=== PATIENT | female | born 2000 | race Caucasian/White ===

== ENCOUNTER 2020-06-24 09:47 | Emergency (ER) | payer OTHER, MEDICAID, SELFPAY ==
[2020-06-24 09:48] VITALS: BP 113/70; PULSE 79; RESP 16; TEMP 36.1; O2SAT 98; BMI 18.8
--- NOTE | 2020-06-24 10:02 | ED.DCSUM_ITS ---
History of Present Illness Chief Complaint: Lower Extremity Injury Informant: Patient, Family Onset: Today Narrative: Patient presents the emergency department with right knee pain. Mom states the patient went to pivot and her kneecap was off to the side and her knee was bent. Mom straighten the knee and push the kneecap back into place. Child now wants to cross her legs Past Medical History - Allergies and Home Meds Allergies/Adverse Reactions: Allergies Sulfa (Sulfonamide Antibiotics) Allergy (Verified 06/24/20 09:48) Anaphylaxis Primary Care Physician: King Sanchez MD [STAFF PHYSICIAN] - (call to arrange follow up) Review of Systems General: Denies: Chills, Fever, Sweats Eyes: Denies: Visual changes - bilaterally, Diplopia ENT: Denies: Rhinorrhea, Sore throat Cardiovascular: Denies: Chest pain, Palpitations Respiratory: Denies: Dyspnea, Cough, Dyspnea on exertion Gastrointestinal: Denies: Abdominal pain, Nausea, Vomiting, Diarrhea, Melena, Hematochezia Genitourinary: Denies: Dysuria, Hematuria, Frequency Musculoskeletal: Reports: Extremity Pain. Denies: Back pain Skin: Denies: Rash, Wounds Neurological: Denies: Headache, Weakness, Numbness Physical Exam Vital Signs/Narrative: Vital Signs Temp Pulse Resp BP Pulse Ox 06/24/20 09:48 97 F L 79 16 113/70 98 Inital Vital Signs reviewed: Yes General: Well nourished, Well developed, No Acute Distress Head: Normocephalic, Atraumatic Eyes: Perrl, EOMI ENT: Moist mucous membranes, No rhinorrhea Neck: Supple, Nontender Cardiovascular: Regular rate, Regular rhythm, No murmurs Respiratory: No distress, CTA bilaterally, Chest nontender Abdomen: Soft, Nontender, Nondistended, Normal bowel sounds Back: Nontender, Normal Inspection Extremities: Nontender, No edema Skin: Normal color, No rash Neurological: Alert, Oriented x3, Cranial nerves II-XII grossly intact, Normal Strength, Normal Sensation Psychological: Normal affect, Normal Mood Diagnostic/Tx/Re-eval Clinical Impression(s) from Imaging Studies Knee X-Ray 06/24/20 10:25 IMPRESSION: Normal x-ray examination of the right knee. Electronically Signed: Nirmal Reveles MD at 10:55 EDT , Service support , - Medical Decision Making From the patient's mother's description it sounds like the patient sustained a lateral patellar dislocation. And then reduced it. Her x-rays are negative. E xtensor mechanism is intact. There does not appear to be any joint instability. She will be placed in a knee immobilizer. She sees orthopedics at [facility]. She may follow-up there and I will give her local orthopedics if need be. ED Disposition - Plan for ED Patient: Disposition: Home or Assisted Living Diagnosis: Closed patellar dislocation Instructions: ED Dislocation Patella Referrals: King Sanchez MD [STAFF PHYSICIAN] - (call to arrange follow up) Additional Instructions: I would schedule follow-up with orthopedics. Certainly the orthopedic surgeons at [facility] would be able to assess her. If not Dr. Sanchez is qualified to see her.
--- NOTE | 2020-06-24 10:25 | RAD_ITS ---
STUDY: X-RAY - RIGHT KNEE REASON FOR EXAM: Female, 19 years old. Pain, patellar dislocation per mother TECHNIQUE: 4 view(s) of the knee. COMPARISON: None. FINDINGS: Normal visualized distal femur. Normal visualized proximal tibia and fibula. Normal patella, which is in anatomic alignment. There is no demonstrated fracture. Normal medial femorotibial compartment. Normal lateral femorotibial compartment. Normal patellofemoral articulation. Normal proximal tibiofibular articulation. There is no demonstrated joint effusion. The soft tissue structures are unremarkable. RAD/Knee 4 or More Views IMPRESSION: Normal x-ray examination of the right knee. Electronically Signed: Nirmal Reveles MD at 10:55 EDT , Service support ,
== END 2020-06-24 11:27 | disposition home or self-care (01) ==
PROVIDERS: Emergency Provider Emergency Medicine
DX: S83.014A Lateral dislocation of right patella, initial encounter (principal); X50.1XXA Overexertion from prolonged static or awkward postures, initial encounter; Y93.9 Activity, unspecified; Y92.9 Unspecified place or not applicable
CPT/HCPCS: 73564; 99283

== ENCOUNTER 2020-07-03 16:13 | Emergency (ER) | payer OTHER, MEDICAID, SELFPAY ==
[2020-07-03 16:15] VITALS: BP 94/56; PULSE 63; RESP 18; TEMP 36.9; O2SAT 98; BMI 16.7
--- NOTE | 2020-07-03 17:45 | ED.VIS.FLU ---
History of Present Illness Chief Complaint: Cough Informant: Patient, Parent Narrative: Patient is a 19-year-old female with history of Down syndrome as well as mitral valve prolapse and enlarged heart presenting with 4 to 5 days of cough and fever. Started with a low-grade fever about 5 days ago and feeling sick. Patient has had a persistent cough with associated sore throat. She has had diarrhea decreased appetite. Mother is tried multiple [id number] medications for the cough including Mucinex, Sudafed and cough drops with no relief. Patient denies any ear pain but states she can sometimes get a headache most recently last night. She had no medications today. She was in the ED a week ago for dislocated patella and has been around multiple children and friends of the family over the weekend. Past Medical History - Allergies and Home Meds Allergies/Adverse Reactions: Allergies Sulfa (Sulfonamide Antibiotics) Allergy (Verified 07/03/20 16:15) Anaphylaxis Primary Care Physician: [facility] Doctor,Out of [NON-STAFF] - Smoking Status: Never smoker Review of Systems General: Reports: Fever. Denies: Chills, Sweats ENT: Reports: Rhinorrhea Cardiovascular: Denies: Chest pain, Palpitations Respiratory: Reports: Cough. Denies: Dyspnea, Dyspnea on exertion Gastrointestinal: Reports: Diarrhea. Denies: Abdominal pain, Nausea, Vomiting, Melena, Hematochezia Genitourinary: Denies: Dysuria, Hematuria, Frequency Skin: Denies: Rash Neurological: Reports: Headache. Denies: Weakness, Numbness Physical Exam Vital Signs/Narrative: Vital Signs Temp Pulse Resp BP Pulse Ox 07/03/20 16:15 98.4 F 63 18 94/56 L 98 Inital Vital Signs reviewed: Yes General: Well nourished, Well developed Head: Normocephalic, Atraumatic Eyes: Perrl, EOMI Neck: Supple, Nontender Cardiovascular: Regular rate, Regular rhythm, No murmurs Respiratory: No distress, - - Dry cough on exam. Negative for: Rhonchi, Wheezing, Diminished Abdomen: Soft, Nontender, Nondistended, Normal bowel sounds Back: Nontender, Normal Inspection Extremities: Nontender, No edema Skin: Normal color, No rash Neurological: Alert, Oriented x3, Cranial nerves II-XII grossly intact, Normal Strength, Normal Sensation Psychological: Normal affect Diagnostic/Tx/Re-eval Chest X-Ray - ED: 1 View, Read by ED Physician, Read by Radiologist, - - Bilateral patchy infiltrates, more pronounced on the left Clinical Impression(s) from Imaging Studies Chest X-Ray 07/03/20 17:55 IMPRESSION: Mild bilateral patchy pneumonic infiltrates most prominent in the left lower lobe. Electronically Signed: Zain Fournier MD at 18:14 EDT , Service support , ADDENDUM: 07/03/20 1913 IMPRESSION: Mild bilateral patchy pneumonic infiltrates most prominent in the left lower lobe. N.B. : Blaire Boss MD, confirmed on 07/03/2020 19:06:19 (ET) that the healthcare facility has received the radiology report. Electronically Signed: Zain Fournier MD at 18:14 EDT , Service support , - Medical Decision Making Patient evaluated for 4 to 5 days of cough and low-grade fever. She appears nontoxic in no acute distress. Her vital signs are normal. Patient's lung sounds are clear. Given the current pandemic I will obtain a chest x-ray and swab the patient for coronavirus. Patient's chest x-ray is consistent with a viral pneumonia with bilateral patchy infiltrates. Patient be covered with azithromycin in case this is an atypical pneumonia. COVID swab is pending. As patient is otherwise well-appearing she is a good candidate for outpatient follow-up. Mother is counseled extensively on return precautions. Patient will also be prescribed Robitussin-AC to help with her cough as it is keeping her up at night. Patient is counseled on signs and symptoms requiring return to the emergency room. Patient verbalizes agreement and understand this plan. Patient discharged home in stable and improved condition. ED Disposition - Plan for ED Patient: Disposition: Home or Assisted Living Diagnosis: Suspected COVID-19 virus infection, Bilateral pneumonia Instructions: ED PNEUMONITIS Adult Prescriptions: Guaifenesin/Codeine [Robitussin AC] 5 ml PO Q6H PRN PRN #100 udc PRN Reason: Cough Transmission Status[id number] Azithromycin [Zithromax Z-Slade] 250 mg PO UD #1 box Transmission Status: Received by [id number] Referrals: [facility] Doctor,Out of [NON-STAFF] - Additional Instructions: I suspect Karmen has coronavirus or some type of pneumonia. We will start her on antibiotics and cough medicine. Please call the band splitter to keep them updated and aware of her status. Please notify anyone that she has been around that she potentially could have coronavirus. Will be contacted if she has a positive swab. Return the emergency room with signs of worsening breathing, shortness of breath or dehydration. Otherwise continue to do [id number] therapies including cold and flu medications and cough medicines as needed for symptom control. Encourage lots of fluids.
--- NOTE | 2020-07-03 17:55 | RAD_ITS ---
ACR Level 3 findings have been noted. An addendum which confirms receipt of the report will follow. STUDY: X-RAY CHEST REASON FOR EXAM: Female, 19 years old. cough x 4 days, fever TECHNIQUE: Single AP portable view of the chest. COMPARISON: None. FINDINGS: Mild patchy infiltrates are seen throughout the bilateral perihilar regions, most prominent in the left lower lobe. There is no demonstrated pleural abnormality. Normal size heart. Normal mediastinum and adelina. Normal visualized pulmonary arteries. Normal visualized aortic arch and descending thoracic aorta. Normal visualized thoracic spine. Normal visualized ribs, clavicles, and shoulders. There is no demonstrated abnormality of the visualized soft tissue structures of the upper abdomen. RAD/Chest 1 View (Portable) IMPRESSION: Mild bilateral patchy pneumonic infiltrates most prominent in the left lower lobe. Electronically Signed: Zain Fournier MD at 18:14 EDT , Service support ,
== END 2020-07-03 18:59 | disposition home or self-care (01) ==
PROVIDERS: Emergency Provider Emergency Medicine
DX: U07.1 COVID-19 (principal); J18.9 Pneumonia, unspecified organism; Q90.9 Down syndrome, unspecified; I34.1 Nonrheumatic mitral (valve) prolapse; I51.7 Cardiomegaly
CPT/HCPCS: 71045; 87635; 99282; U0003

== ENCOUNTER → 2020-12-04 14:54 | Outpatient (CLI) | payer OTHER, MEDICAID, SELFPAY ==
[2020-07-19 14:37] VITALS: BMI 16.7
[2020-12-04 17:41] LABS: Absolute Lymphocyte Count 1.21 X10^3/uL (0.83-4.51); Absolute Neutrophil Count 2.5 X10^3/uL (2.0-7.7); Basophil% 2.3 % (0-1); Eosinophil# 0.09 X10^3/uL; Eosinophils% 2.1 % (0-5); Hemoglobin 13.8 g/dL (12.0-15.0); Lymphocyte # 1.21 X10^3/ul (4.0); Lymphocyte % 28.1 % (19-41); Mean Corp Hgb Conc 32.1 g/dL (32-36); Mean Corpuscular Hgb 31.2 pg (27.0-32.0); Mean Corpuscular Volume 97.3 fL (81-99); Mean Platelet Vol. 9.7 fl (6.2-12.0); Monocyte# 0.35 X10^3/uL; Monocyte% 8.1 % (0-10); NRBC Flagged by Analyzer 0 % (0-5); Neutrophil # 2.54 X10^3/uL (2.7-7.7); Neutrophil % 59.2 % (47-70); Platelet Count 277 K/mm3 (150-450); RBC Distribution Width CV 13.1 % (11.6-14.6); RBC Distribution Width SD 47.2 fl (35.1-43.9); Red Blood Count 4.42 M/mm3 (4.2-5.4); White Blood Count 4.3 K/mm3 (4.4-11.0)
[2020-12-04 18:17] LABS: ALB/GLOB Ratio 0.8 RATIO (0.9-2.4); AST(SGOT) 20 U/L (15-37); Alanine Aminotransfer ALT/SGPT 63 U/L (13-56); Albumin, Serum 3.3 g/dL (3.2-5.0); Alkaline Phosphatase 93 U/L (45-117); Anion Gap 6 (5-15); BUN 20 mg/dL (7-18); BUN/Creat Ratio 16.5 RATIO (10-20); Calcium,Total 8.8 mg/dL (8.5-10.1); Chloride 109 mmol/L (98-107); Creatinine, Serum 1.21 mg/dL (0.55-1.02); EST Glomerular Filtration Rate 59 mL/min (>60); Est Glom Filt Rate - Afr Amer 71 mL/min (>60); Globulin 4.4 g/dL (2.2-4.2); Glucose 90 mg/dL (74-106); Potassium 4.1 mmol/L (3.5-5.1); Protein, Total 7.7 g/dL (6.4-8.2); Sodium Level 140 mmol/L (136-145); Thyroid Stim Hormone (TSH) 4.57 uIU/mL (0.358-3.74)
== END ==
PROVIDERS: PCP Family Medicine; Referring Provider Family Medicine; Visit Provider Family Medicine
DX: E03.9 Hypothyroidism, unspecified (principal)
CPT/HCPCS: 36415; 80053; 84443; 85025

== ENCOUNTER → 2021-03-08 16:19 | Outpatient (CLI) | payer OTHER, MEDICAID, SELFPAY ==
[2020-07-19 14:37] VITALS: BMI 16.7
[2021-03-08 18:20] LABS: Free T3 2.2 pg/mL (2.18-3.98); T4 Free Direct 0.95 ng/dL (0.76-1.46); Thyroid Stim Hormone (TSH) 4.42 uIU/mL (0.358-3.74)
== END ==
PROVIDERS: PCP Family Medicine; Referring Provider Family Medicine; Visit Provider Family Medicine
DX: E03.9 Hypothyroidism, unspecified (principal)
CPT/HCPCS: 36415; 84439; 84443; 84481

== ENCOUNTER → 2021-06-15 11:45 | Outpatient (CLI) | payer OTHER, MEDICAID, SELFPAY ==
[2020-07-19 14:37] VITALS: BMI 16.7
[2021-06-15 15:38] LABS: Thyroid Stim Hormone (TSH) 2.88 uIU/mL (0.358-3.74)
== END ==
PROVIDERS: PCP Family Medicine; Referring Provider Family Medicine; Visit Provider Family Medicine
DX: E03.9 Hypothyroidism, unspecified (principal)
CPT/HCPCS: 36415; 84443

== ENCOUNTER → 2022-03-06 | Outpatient (CLI) | payer OTHER, MEDICAID, SELFPAY ==
[2022-03-06 17:57] LABS: Absolute Lymphocyte Count 1.13 X10^3/uL (0.83-4.51); Absolute Neutrophil Count 2.4 X10^3/uL (2.0-7.7); Basophil# 0.07 X10^3/uL; Basophil% 1.8 % (0-1); Eosinophil# 0.08 X10^3/uL; Hematocrit 43.7 % (37-47); Hemoglobin 14.2 g/dL (12.0-15.0); Lymphocyte # 1.13 X10^3/ul (0.83-4.51); Lymphocyte % 28.7 % (19-41); Mean Corp Hgb Conc 32.5 g/dL (32-36); Mean Corpuscular Hgb 31.3 pg (27.0-32.0); Mean Corpuscular Volume 96.5 fL (81-99); Mean Platelet Vol. 11.5 fl (6.2-12.0); Monocyte# 0.28 X10^3/uL; Monocyte% 7.1 % (0-10); NRBC Flagged by Analyzer 0 % (0-5); Neutrophil # 2.36 X10^3/uL (2.7-7.7); Neutrophil % 59.9 % (47-70); Platelet Count 210 K/mm3 (150-450); RBC Distribution Width CV 13.9 % (11.6-14.6); RBC Distribution Width SD 49.4 fl (35.1-43.9); Red Blood Count 4.53 M/mm3 (4.2-5.4); White Blood Count 3.9 K/mm3 (4.4-11.0)
[2022-03-06 18:19] LABS: T4 Free Direct 1.05 ng/dL (0.76-1.46); Thyroid Stim Hormone (TSH) 4.64 uIU/mL (0.358-3.74)
== END | disposition home or self-care (01) ==
LOC: MTLAB 14:55
PROVIDERS: PCP Family Medicine; Referring Provider Family Medicine; Visit Provider Family Medicine
DX: E03.9 Hypothyroidism, unspecified (principal); R53.83 Other fatigue
CPT/HCPCS: 36415; 84439; 84443; 85025

== ENCOUNTER → 2022-05-15 | Outpatient (CLI) | payer OTHER, MEDICAID, SELFPAY ==
[2022-05-15 16:01] LABS: T4 Free Direct 1.12 ng/dL (0.76-1.46); Thyroid Stim Hormone (TSH) 4.87 uIU/mL (0.358-3.74)
== END | disposition home or self-care (01) ==
PROVIDERS: PCP Family Medicine; Referring Provider Family Medicine; Visit Provider Family Medicine
DX: E03.9 Hypothyroidism, unspecified (principal)
CPT/HCPCS: 36415; 84439; 84443

== ENCOUNTER → 2022-09-17 | Outpatient (CLI) | payer OTHER, MEDICAID, SELFPAY ==
[2022-09-17 18:10] LABS: Thyroid Stim Hormone (TSH) 3.47 uIU/mL (0.358-3.74)
== END | disposition home or self-care (01) ==
PROVIDERS: PCP Family Medicine; Referring Provider Family Medicine; Visit Provider Family Medicine
DX: E03.9 Hypothyroidism, unspecified (principal)
CPT/HCPCS: 36415; 84439; 84443

== ENCOUNTER → 2023-01-09 | Outpatient (CLI) | payer OTHER, MEDICAID, SELFPAY ==
--- NOTE | 2023-01-09 14:13 | RAD_ITS ---
STUDY: X-RAY - ABDOMEN/PELVIS REASON FOR EXAM: Female, 22 years old. Pain, distention TECHNIQUE: Two AP supine views of the abdomen and pelvis. COMPARISON: None. FINDINGS: Normal visualized lung bases. There is an abundance of fecal material throughout the colon. There is no demonstrated free abdominal air. The visualized liver, spleen and kidneys are grossly normal in size and morphology. Normal soft tissue structures. Normal visualized osseous structures. RAD/Abdomen Single View IMPRESSION: No acute findings, retained stool Electronically Signed: Nirmal Damian MD at 15:01 EST ,
== END | disposition home or self-care (01) ==
LOC: MTRAD 14:10
PROVIDERS: PCP Family Medicine; Referring Provider Family Medicine; Visit Provider Family Medicine
DX: R15.1 Fecal smearing (principal)
CPT/HCPCS: 74018

== ENCOUNTER → 2023-09-03 | Outpatient (CLI) | payer OTHER, MEDICAID, SELFPAY ==
[2023-09-03 15:49] LABS: Absolute Lymphocyte Count 1.08 X10^3/uL (0.83-4.51); Absolute Neutrophil Count 2.8 X10^3/uL (2.0-7.7); Basophil# 0.08 X10^3/uL; Basophil% 1.8 % (0-1); Eosinophil# 0.08 X10^3/uL; Eosinophils% 1.8 % (0-5); Hematocrit 46.4 % (37-47); Hemoglobin 14.9 g/dL (12.0-15.0); Lymphocyte # 1.08 X10^3/ul (0.83-4.51); Lymphocyte % 24.8 % (19-41); Mean Corp Hgb Conc 32.1 g/dL (32-36); Mean Corpuscular Hgb 31.5 pg (27.0-32.0); Mean Corpuscular Volume 98.1 fL (81-99); Mean Platelet Vol. 9.9 fl (6.2-12.0); Monocyte# 0.31 X10^3/uL; Monocyte% 7.1 % (0-10); NRBC Flagged by Analyzer 0 % (0-5); Neutrophil % 64.3 % (47-70); Platelet Count 281 K/mm3 (150-450); RBC Distribution Width CV 14.3 % (11.6-14.6); RBC Distribution Width SD 52.6 fl (35.1-43.9); Red Blood Count 4.73 M/mm3 (4.2-5.4); White Blood Count 4.4 K/mm3 (4.4-11.0)
[2023-09-03 16:12] LABS: Anion Gap 8 (5-15); BUN 19 mg/dL (7-18); Calcium,Total 9.3 mg/dL (8.5-10.1); Chloride 108 mmol/L (98-107); Creatinine, Serum 1.19 mg/dL (0.55-1.02); EST Glomerular Filtration Rate 59 mL/min (>60); Est Glom Filt Rate - Afr Amer 71 mL/min (>60); Glucose 108 mg/dL (74-106); Potassium 4.1 mmol/L (3.5-5.1); Sodium Level 141 mmol/L (136-145)
== END | disposition home or self-care (01) ==
LOC: MTLAB 13:19
PROVIDERS: PCP Family Medicine; Referring Provider Family Medicine; Visit Provider Family Medicine
DX: Z00.00 Encounter for general adult medical examination without abnormal findings (principal); E03.9 Hypothyroidism, unspecified; Q90.9 Down syndrome, unspecified
CPT/HCPCS: 36415; 80048; 84443; 85025

== ENCOUNTER → 2024-09-06 | Outpatient (CLI) | payer MEDICARE, MEDICAID, SELFPAY ==
--- NOTE | 2024-09-06 15:56 | RAD_ITS ---
INDICATION: CONSTIPATION EXAMINATION/TECHNIQUE: X-RAY - XR Abdomen W/ Decub and/or Erect Views COMPARISON: No relevant prior comparison study available FINDINGS: BOWEL GAS PATTERN: Mild fecal retention. No bowel or stomach distention. FREE AIR: Not visualized. ORGANOMEGALY: Not seen. CALCIFICATIONS: No abnormal calcifications observed. LOWER CHEST: No acute pathology. BONES AND SOFT TISSUES: No acute pathology. RAD/Abd Inc Decub and/or Erect IMPRESSION: Non-obstructive bowel gas pattern. Electronically Signed: Jhoan Unger MD at 14:17 EST ,
[2024-09-06 19:12] LABS: ALB/GLOB Ratio 0.7 RATIO (0.9-2.4); AST(SGOT) 17 U/L (15-37); Alanine Aminotransfer ALT/SGPT 44 U/L (13-56); Albumin, Serum 3.3 g/dL (3.2-5.0); Alkaline Phosphatase 166 U/L (45-117); Anion Gap 7 (5-15); BUN 17 mg/dL (7-18); Calcium,Total 8.8 mg/dL (8.5-10.1); Chloride 110 mmol/L (98-107); Creatinine, Serum 1.13 mg/dL (0.55-1.02); EST Glomerular Filtration Rate 62 mL/min (>60); Est Glom Filt Rate - Afr Amer 75 mL/min (>60); Globulin 4.6 g/dL (2.2-4.2); Glucose 81 mg/dL (74-106); Magnesium 2.4 mg/dL (1.6-2.6); Protein, Total 7.9 g/dL (6.4-8.2); Sodium Level 139 mmol/L (136-145); T4 Total, Thyroxin 11.8 ug/dL (4.8-13.9)
--- OUTSIDE RECORDS SUMMARY | 2024-09-06 19:25 | XMS RPT_ITS | CCD ---
Author Organization [facility] Care Team Providers Care Arcade Game Technician Name Role Phone KAREN NICKERSON Attending Unavailable KAREN NICKERSON Referring Unavailable KAREN NICKERSON Attending Unavailable KAREN NICKERSON Attending Unavailable KAREN NICKERSON Attending Unavailable KAREN NICKERSON Attending Unavailable KAREN NICKERSON Attending Unavailable KAREN NICKERSON Attending Unavailable Chester, Sariah Unavailable Unavailable Kenneth Peace Unavailable Unavailable Karen Nickerson Unavailable Unavailable Carol Coker Unavailable Unavailable Delmy Kessler Unavailable Unavailable Ashley Erika Unavailable Unavailable Eb Hankins Unavailable Unavailable Paul Shankar Unavailable Unavailable Jacobo Khalida Unavailable Unavailable Karen Nickerson Unavailable Unavailable Jacobo, Khalida Unavailable Unavailable Joshua Delmy Unavailable Unavailable Ozzy Carrington Unavailable Unavailable Felicia Fraga Unavailable Unavailable Meet, Sariah Unavailable Unavailable Karen Nickerson Unavailable Unavailable Merissa, Sariah Unavailable Unavailable Kenneth Peace Unavailable Unavailable Jacobo, Khalida Unavailable Unavailable Karen Nickerson G Unavailable Unavailable Paul Shankar Unavailable Unavailable Idania Smith Unavailable Unavailable Ozzy Carrington Unavailable Unavailable Karen Nickerson MD Unavailable Unavailabl e Chester DO, Sariah Unavailable Unavailable Kenneth Peace MD Unavailable Unavailable Karen Nickerson Unavailable Unavailable Carol Coker MD Unavailable Unavailable Delmy Lewis MD Unavailable Unavailable MacElbert HAND Erika Unavailable Unavailable Eb Hankins MD Unavailable Unavailable Paul Shankar Unavailable Unavailable Jacobo PhD, Khalida Unavailable Unavailab Ozzy Bunch Unavailable Unavailable Karen Nickerson Unavailable Unavailable Unavailable Unavailable Unavailable Yael Stewart Unavailable Terry, Dr. Yael Lopez Primary Care Mehran Dick, Alvino Hayes Attending Unavailabl e PIROBERTO, RACHEL ELIZALDE Referring Unavailabl e PIASEGERBER, RACHEL ELIZALDE Attending Unavailabl e Terry, Dr. Yael Lopez Primary Care Laurenvaannita labdebbi Grove, Dr. Rachel Elizalde Referring Unavai lable Perfecto, Dr. Rachel Elizalde Attending Mehran Stewart, Dr. Yael Lopez Primary Care Mehran Dick, Dr. Alvino Hayes Referring Unavai lable Perfecto, Dr. Rachel Elizalde Attending Mehran Stewart, Dr. Yael Lopez Primary [facility] Mehran Stewart MD, Yael Jessica Primary Care Provider Alvino Dick MD Unavailable Terry GARCIA, Yael Lopez Primary Care Provider Terry GARCIA, Yael Lopez Primary Care Provider U delmy Stewart MD, Yael Lopez Primary Care Provider Alvino Dick MD Unavailable [phone] Bella LARSEN, Liliana Unavailable Unavailable Nic GARCIA, Krzysztof Sagastume Unavailable ALVINO DICK Referring Unavailable YAEL STEWART [facility] ALVINO Herrera Referring Unavailable YAEL STEWART Primary [facility] UnavailALVINO Zapata Attending Unavailable TERRY YAEL JESSICA Primary [facility] Unavailabl e Allergies Allergy Classification Reported Allergen(s) Allergy Type Date of Onset Reaction(s) Facility Sulfonamides (antibiotic) (2 sources) Sulfonamides (Antibiotic); Translations: [sulfa] Drug Allergy [id number] [facility] 3150 Work Phone: (1 source) drug allergy [id number] [place] [address] Work Phone: (20 sources) Sulfonamides (Antibiotic); Translations: [sulfa] drug allergy [facility] Work Phone: (6 sources) Sulfonamides (Antibiotic); Translations: [SULFA (SULFONAMIDE ANTIBIOTICS)] Drug Allergy 07-03-[address] [facility] Medications Current Medications Medication Drug Class(es) Dates Sig (Normalized) Sig (Original) amoxicillin 500 mg oral capsule (1 source) Penicillin-class Antibacterial Start: 02-07-2023 End: 09-05-2023 take 1 capsule by mouth three times daily amoxicillin (Amoxil) 500 mg capsule Take 1 capsule (500 mg) by mouth 3 times a day. 0 02/07/2023 09/05/2023 Discontinued (Therapy completed) ethinyl estradiol 0.035 mg / norethindrone 1 mg oral tablet (14 sources) Estrogen Start: 01-19-2016 norethindrone-ethi n estradioL (Dasetta 135, 28,) 1-35 mg-mcg tablet Take by mouth. 01/19/2016 Active Start: 01-19-2016 take 1 tablet by elsi th once daily Dasetta 1/35 1-35 MG-MCG Oral Tablet take 1 tablet by mouth once daily SKIPPING PLACEBOS FOR DYSMENORRHEA Quantity: 56 Refills: 0 DO Start : 19-Jan-2016 Active Start: 01-19-2016 take 1 tablet by elsi th once daily Dasetta 1/35 1-35 MG-MCG Oral Tablet take 1 tablet by mouth once daily SKIPPING PLACEBOS FOR DYSMENORRHEA Quantity: 56 Refills: 0 Start : 19-Jan-2016 Active sertraline 50 mg oral tablet (20 sources) Serotonin Reuptake Inhibitor Start: 08-23-2019 sertraline (Zoloft) 50 mg tablet Take by mouth. 08/23/2019 Active Completed/Discontinued Medications Medication Drug Class(es) Dates Sig (Normalized) Sig (Original) ACETAMINOPHEN, BULK, MISC (3 sources) Start: 12-14-2018 End: 09-01-2023 take 487.5 mg by mouth every six hours as needed ACETAMINOPHEN, BULK, MISC Take 487.5 mg by mouth every 6 hours if needed. 0 12/14/2018 09/01/2023 Discontinued (Therapy completed) Start: 12-14-2018 take 487.5 mg by elsi th every six hours as needed ACETAMINOPHEN, BULK, MISC Take 487.5 mg by mouth every 6 hours if needed. 0 12/14/2018 Active [id number] 200 actuat albuterol 0.09 mg/actuat metered dose inhaler (14 sources) beta2-Adrenergic Agonist Start: 07-05-2020 End: 09-01-2023 albuterol 90 mcg/actuation inhaler Inhale. 0 07/05/2020 09/01/2023 Discontinued (Therapy completed) Start: 07-05-2020 End: 09-17-2022 take 2-4 puff(s) by inhalation every four to six hours as needed Albuterol Sulfate HFA 108 (90 Base) MCG/ACT Inhalation Aerosol Solution take 2-4 puffs as needed every 4-6 hours Quantity: 1 Refills: 0 Ordered: 05-Jul-2020 Karen Nickerson MD Start : 05-Jul-2020 End : 17-Sep-2022 Complete please dispense with facemask for delivery. Start: 07-05-2020 take 2-4 puff(s) by inhalation every four to six hours as needed Albuterol Sulfate HFA 108 (90 Base) MCG/ACT Inhalation Aerosol Solution take 2-4 puffs as needed every 4-6 hours Quantity: 1 Refills: 0 Ordered: 05-Jul-2020 Karen Nickerson MD Start : 05-Jul-2020 Active please dispense with facemask for delivery. Start: 07-05-2020 take 2-4 puff(s) by inhalation every four to six hours as needed Albuterol Sulfate HFA 108 (90 Base) MCG/ACT Inhalation Aerosol Solution take 2-4 puffs as needed every 4-6 hours Quantity: 1 Refills: 0 Karen Nickerson MD Start : 05-Jul-2020 Active 6.7 GM Inhaler cyproheptadine hydrochloride 4 mg oral tablet (2 sources) Start: 11-26-2018 take 1 tablet by mouth at bedtime Cyproheptadine HCl - 4 MG Oral Tablet TAKE 1 TABLET AT BEDTIME. Quantity: 30 Refills: 5 Karen Nickerson MD Start : 26-Nov-2018 Active Dasetta 1/35 1-35 MG-MCG Oral Tablet (13 sources) Start: 01-19-2016 take 1 tablet by mouth once daily Dasetta 1/35 1-35 MG-MCG Oral Tablet take 1 tablet by mouth once daily SKIPPING PLACEBOS FOR DYSMENORRHEA Quantity: 56 Refills: 0 Ordered: 19-Jan-2016 DO Start : 19-Jan-2016 Active DULoxetine 30 mg delayed release oral capsule (2 sources) Serotonin and Norepinephrine Reuptake Inhibitor Start: 10-09-2018 take 1 capsule by mouth once daily DULoxetine HCl - 30 MG Oral Capsule Delayed Release Particles TAKE 1 CAPSULE Daily Quantity: 90 Refills: 0 Idania Smith Start : 09-Oct-2018 Active ibuprofen 400 mg oral tablet (20 sources) Nonsteroidal Anti-inflammatory Drug Start: 10-28-2018 End: 09-01-2023 ibuprofen 400 mg tablet Take by mouth. 0 10/28/2018 09/01/2023 Discontinued (Therapy completed) Start: 10-28-2018 take 1 tablet by elsi th once as needed, then take 3 tablets by mouth every week as needed Ibuprofen 400 MG Oral Tablet TAKE 1 TABLET Once PRN do not exceed 3 doses per week Quantity: 12 Refills: 0 Ordered: 28-Oct-2018 Sariah Craven DO Start : 28-Oct-2018 Active levothyroxine sodium 0.1 mg oral tablet (20 sources) l-Thyroxine Start: 03-13-2022 Levothyroxine Sodium 100 MCG Oral Tablet Quantity: 30 Refills: 0 Ordered: 05-Jun-2022 DO Start : 13-Mar-2022 Complete Start: 02-05-2022 Levothyroxine Sodium 88 MCG Oral Tablet Quantity: 30 Refills: 0 Ordered: 23-Feb-2022 DO Start : 05-Feb-2022 Complete Start: 12-12-2016 take 1 tablet by elsi th once daily levothyroxine (Synthroid, Levoxyl) 112 mcg tablet Take 1 tablet (112 mcg) by mouth once daily. 12/12/2016 Active Start: 12-12-2016 take 1 tablet by elsi th once daily Levothyroxine Sodium 88 MCG Oral Tablet TAKE 1 TABLET DAILY DIRECTED. Quantity: 0 Refills: 0 Ordered: 31-Aug-2021 Kenneth Paece MD Start : 12-Dec-2016 Active Start: 12-12-2016 take 0.5 tablet by m outh once daily Levoxyl 137 MCG Oral Tablet 0.5 tablets by mouth daily. Quantity: 45 Refills: 3 Ordered: 14-Dec-2019 Kenneth Peace MD Start : 12-Dec-2016 Active OptiChamber Face Mask-Small (1 source) Start: 07-05-2020 OptiChamber Fa ce Mask-Small USE DIRECTED WITH INHALER Quantity: 1 Refills: 0 Karen Nickerson MD Start : 05-Jul-2020 Active OptiChamber Face Mask-Small MISC (1 source) Start: 07-05-2020 OptiChamber Fa ce Mask-Small MISC USE DIRECTED WITH INHALER Quantity: 1 Refills: 0 Karen Nickerson MD Start : 05-Jul-2020 Active Problems Active Problems Problem Classification Problem Date Documented Da te Episodic/Chronic Anxiety disorders (20 sources) Obsessive-compulsive disorder; Translations: [Anxiety disorder] Onset: 07-03-2023 07-03-2023 Chronic Attention-deficit conduct and disruptive behavior disorders (6 sources) Compulsive behavior; Translations: [Obsessive-compulsiv e behavior] Chronic Cardiac and circulatory congenital anomalies (20 sources) Cleft leaflet of mitral valve; 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] Onset: 09-06-2022 08-26-2023 Chronic Comment on above: Added by Problem Lis t Migration; 2013-06-28; Moved to [facility] 2013 9:35PM; with Tetralogy of Fa llot, S/P complete surgical repair in [place] as a child; S/P mitral cleft jose f adalgisa with small residual cleft noted subsequently on echocardiogram; Cardiac dysrhythmias (20 sources) Other specified cardiac arrhythmias; Translations: [Bradycardia, unspecified] Onset: 07-03-2023 07-03-2023 Chronic Cardiac dysrhythmias (20 sources) ECG: sinus bradycardia; Translations: [Other specified cardiac dysrhythmias] Onset: 07-03-2023 07-03-2023 Episodic Coma; stupor; and brain damage (7 sources) Daytime somnolence; Translations: [Hypersomnia, unspecified] Onset: 10-09-2022 Episodic Digestive congenital anomalies (20 sources) Congenital velopharyngeal incompetence; Translations: [Other specified anomalies of pharynx] Onset: 07-03-2023 Resolved: 06-02-2017 07-03-2023 Chronic Headache; including migraine (20 sources) New daily persistent headache; Translations: [Chronic tension-type headache] Onset: 07-03-2023 07-03-2023 Chronic Heart valve disorders (20 sources) Pulmonic valve regurgitation; Translations: [Tricuspid valve regurgitation] Onset: 09-06-2022 07-03-2023 Chronic Immunizations and screening for infectious disease (20 sources) Patient encounter status; Translations: [Other specified vaccination] Resolved: 06-02-2017 Episodic Mycoses (6 sources) Candidiasis of mouth; Translations: [Thrush, oral] Episodic Other circulatory disease (20 sources) H/O: heart disorder; Translations: [Personal history of other diseases of circulatory system] Episodic Comment on above: moderate regurgitati on jet; Other congenital anomalies (20 sources) Submucous cleft of hard palate; Translations: [Cleft palate, unspecified] Onset: 07-03-2023 07-03-2023 Chronic Other congenital anomalies (20 sources) Anomaly of chromosome pair 21; 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] Onset: 07-03-2023 07-03-2023 Chronic Other congenital anomalies (1 source) Cleft palate, unspecified; Translations: [Submucous cleft palate] Chronic Other congenital anomalies (4 sources) Down syndrome, unspecified; Translations: [Down syndrome, unspecified] Onset: 09-06-2022 Chronic Other congenital anomalies (9 sources) H/O: congenital anomaly; Translations: [History of Down syndrome] Episodic Other connective tissue disease (8 sources) Neurological finding; Translations: [Seizure-like activity] Episodic Other ear and sense organ disorders (20 sources) Sensorineural hearing loss, bilateral; Translations: [Sensorineural hearing loss, bilateral] Onset: 07-03-2023 Resolved: 06-16-2017 07-03-2023 Chronic Other ear and sense organ disorders (18 sources) Asymmetrical sensorineural hearing loss; Translations: [Sensorineural hearing loss, asymmetrical] Onset: 07-03-2023 07-03-2023 Chronic Other ear and sense organ disorders (9 sources) Asymmetrical sensorineural hearing loss; Translations: [Asymmetric SNHL (sensorineural hearing loss)] Episodic Other gastrointestinal disorders (20 sources) Personal history of other diseases of the digestive system; Translations: [History of bowel obstruction] Episodic Other lower respiratory disease (6 sources) Cough; Translations: [Cough] Episodic Other lower respiratory disease (5 sources) Snoring; Translations: [Other respiratory abnormalities] Episodic Other lower respiratory disease (2 sources) Snoring; Translations: [Snoring] Onset: 10-09-2022 Episodic Other nervous system disorders (9 sources) H/O: eye disorder; Translations: [History of keratoconjunctivitis ] Episodic Other nutritional; endocrine; and metabolic disorders (12 sources) H/O: thyroid disorder; Translations: [History of thyroid disorder] Episodic [place]-; endo-; and myocarditis; cardiomyopathy (except that caused by tuberculosis or sexually transmitted disease) (11 sources) Endocarditis, valve unspecified; Translations: [Heart valve regurgitation] Chronic Residual codes; unclassified (6 sources) Daytime somnolence; Translations: [Hypersomnia, unspecified] Chronic Residual codes; unclassified (6 sources) Sleep apnea; Translations: [Unspecified sleep apnea] Chronic Residual codes; unclassified (5 sources) Obstructive sleep apnea of adult; Translations: [Obstructive sleep apnea (adult)(pediatric)] Chronic Residual codes; unclassified (2 sources) Obstructive sleep apnea (adult) (pediatric); Translations: [Obstructive sleep apnea (adult) (pediatric)] Onset: 10-09-2022 Chronic Residual codes; unclassified (1 source) Body mass index (BMI) pediatric, 5th percentile to less than 85th percentile for age; Translations: [BMI (body mass index), pediatric, 5% to less than 85% for age] Episodic Residual codes; unclassified (14 sources) Finding of body mass index; Translations: [Body Mass Index, pediatric, 5th percentile to less than 85th percentile for age] Episodic Residual codes; unclassified (12 sources) History of vaccination; Translations: [Personal history of other drug therapy] Episodic Thyroid disorders (20 sources) Acquired hypothyroidism; Translations: [Unspecified acquired hypothyroidism] Onset: 07-03-2023 07-03-2023 Chronic Past or Other Problems Problem Classification Problem Date Documented Date Episodic/Chronic Acquired foot deformities (20 sources) Acquired hallux valgus; Translations: [Hallux valgus (acquired)] Resolved: 7 Chronic Acute and chronic tonsillitis (20 sources) Hypertrophy of tonsils AND adenoids; Translations: [Hypertrophy of tonsil with adenoids] Resolved: 6 Chronic Attention-deficit, conduct, and disruptive behavior disorders (18 sources) Compulsive behavior; Translations: [Obsessive-compulsive disorders] Onset: 3 07-03-2023 Episodic Blindness and vision defects (20 sources) Presence of spectacles and contact lenses; Translations: [Hypermetropia] Onset: 8 Resolved: 7 07-03-2023 Episodic Comment on above: Added by Problem Selam spence Migration; 2013-06-28; Moved to [facility] 2013 9:35PM; Epilepsy; convulsions (19 sources) Unspecified convulsions; Translations: [Neurological finding] Onset: 3 07-03-2023 Episodic Fracture of upper limb (20 sources) Nondisplaced fracture of distal phalanx of right index finger, initial encounter for open fracture; Translations: [Nondisplaced fracture of distal phalanx of right index finger, subsequent encounter for fracture with delayed healing] Resolved: Episodic Inflammation; infection of eye (except that caused by tuberculosis or sexually transmitteddisease) (20 sources) Keratoconjunctivitis; Translations: [Unspecified keratoconjunctivitis, bilateral] Onset: 4 Resolved: 6 Episodic Other congenital anomalies (20 sources) Complete trisomy 21 syndrome; 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] Resolved: Chronic Other congenital anomalies (14 sources) H/O: congenital anomaly; 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] Onset: 4 Resolved: Chronic Other congenital anomalies (5 sources) Submucous cleft palate; Translations: [Submucous cleft palate] Other connective tissue disease (20 sources) Tibialis posterior tendinitis ; Translations: [Tibialis tendinitis] Resolved: Episodic Other connective tissue disease (18 sources) History of cervical spine fusion; Translations: [Arthrodesis status] Onset: 3 07-03-2023 Episodic Other ear and sense organ disorders (20 sources) Conductive hearing loss, bilateral; Translations: [Conductive hearing loss, bilateral] Resolved: Chronic Other injuries and conditions due to external causes (20 sources) H/O: fracture; Translations: [Personal history of traumatic fracture] Resolved: Episodic Other injuries and conditions due to external causes (20 sources) Injury of face; Translations: [Injury of face and neck] Onset: 3 07-03-2023 Episodic Other nervous system disorders (20 sources) History of neurodevelopmental disorder; Translations: [Personal history of unspecified mental disorder] Resolved: 7 Episodic Other nervous system disorders (14 sources) Personal history of other diseases of the nervous system and sense organs; Translations: [History of keratoconjunctivitis] Resolved: 6 Episodic Other nutritional; endocrine; and metabolic disorders (15 sources) Short stature (child); Translations: [General finding of height] Resolved: Episodic Other nutritional; endocrine; and metabolic disorders (20 sources) Failure to gain weight; Translations: [Failure to thrive] Resolved: Episodic Comment on above: Added by Problem Selam spence Migration; 2013-06-28; Moved to 2013 9:35PM; Other nutritional; endocrine; and metabolic disorders (20 sources) Failure to thrive (child); Translations: [Childhood failure to gain weight] Resolved: Episodic Other screening for suspected conditions (not mental disorders or infectious disease) (20 sources) Thyroid function tests abnormal; Translations: [Abnormal electrocardiogram [ECG] [EKG]] Onset: 3 07-03-2023 Episodic Other upper respiratory disease (20 sources) Hypernasality syndrome; Translations: [Hypernasality] Onset: 3 07-03-2023 Episodic Pneumonia (except that caused by tuberculosis or sexually transmitted disease) (19 sources) Pneumonia; Translations: [Pneumonia, organism unspecified] Onset: 3 07-03-2023 Episodic Residual codes; unclassified (20 sources) H/O: Disorder; Translations: [Personal history of other disorders of nervous system and sense organs] Resolved: Episodic Comment on above: Added by Rylee spence Migration; 2013-06-28; Moved to 2013 9:35PM; Residual codes; unclassified (6 sources) H/O: respiratory disease; Translations: [Other specified personal history presenting hazards to health] Resolved: Episodic Skin and subcutaneous tissue infections (20 sources) Cellulitis; Translations: [Cellulitis of finger] Resolved: 7 Episodic Spondylosis; intervertebral disc disorders; other back problems (20 sources) Atlantoaxial instability; Translations: [Other joint derangement, not elsewhere classified, other specified sites] Onset: 3 07-03-2023 Episodic Syncope (20 sources) Vasovagal syncope; Translations: [Syncope and collapse] Onset: 3 07-03-2023 Episodic Unclassified (20 sources) Patient encounter status; Translations: [Encounter for immunization] Unclassified (9 sources) History of cervical spine fusion; Translations: [Status post cervical spinal fusion] Unclassified (20 sources) Normal left ventricular systolic function and wall motion; Translations: [Normal left ventricular systolic function and wall motion] Unclassified (7 sources) Normal body mass index; Translations: [BMI (body mass index), pediatric, 5% to less than 85% for age] Unclassified (8 sources) General finding of height; Translations: [History of Short stature] Unclassified (1 source) Finding of body mass index; Translations: [BMI (body mass index), pediatric, 5% to less than 85% for age] NEGATED: Highlighted row has not occurred!Residual codes; unclassified (20 sources) Disease Episodic Results Test Name Value Interpretation Reference Range Facility ADULT CONGENITAL TRANSTHORAC IC ECHO (TTE) COMPLETEon 09-03-2024 ADULT CONGENITAL TRANSTHORACIC ECHO (TTE) COMPLETE [facility], [facility] [place] [address] [place] [address] Patient Name: LOS ARAIZA Study Location: [facility] Study Date: 09/03/2024 Patient Status: Outpatient MRN/PID: [id number] Study Type: ADULT CONGENITAL TRANSTHORACIC ECHO (TTE) COMPLETE Date of : 2000 Age: 23 years Gender: F Height/Weight: 165.10 cm / 47.17 kg BSA: 1.50 m2 Blood Pressure: 151 / 75 mmHg Reading Physician: Erika Preston MD Ordering Provider: [facility] ALVINO MUÑOZGER Trekking Guide: Ne Ferrer RDCS,AE,RVT,PE Diagnosis/ICD: 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 Summary: Complete echocardiogram examination with two-dimensional imaging, M-mode, color-Doppler, and spectral Doppler was performed. 1. The left atrioventricular valve leaflets are mildly thickened, consistent with post-surgical changes. 2. Mild left atrioventricular valve regurgitation. 3. Trivial right atrioventricular valve regurgitation. 4. No right and trivial left atrioventricular valve stenosis. 5. The pulmonary valve leaflets appear thickened and dome during systole. 6. Mild pulmonary valve regurgitation. 7. Trivial pulmonary valve stenosis. 8. No left ventricular outflow tract obstruction. 9. Imaging is inadequate to rule out an atrial level shunt, however none is seen. 10. No residual ventricular septal defect. 11. Left ventricle is normal in size. Normal systolic function. 12. Qualitatively normal right ventricular size and normal systolic function. 13. The proximal branch pulmonary arteries appear normal without evidence of stenosis. 14. No pericardial effusion. Segmental Anatomy, Cardiac Position and Situs: S,D,S. The heart position is within the left hemithorax. The cardiac apex is oriented leftward. The aorta is to the right of the pulmonary artery. Normal segmental cardiac anatomy. Systemic Veins: The superior vena cava was not well visualized. The inferior vena cava is right-sided and inserts into the right atrium normally. Pulmonary Veins: The pulmonary veins were not well visualized. Atria: Imaging is inadequate to rule out an atrial level shunt, however none is seen. The right atrium is normal in size. The left atrium is normal in size. Left Ventricle: Left ventricle is normal in size. Normal systolic function. Right Ventricle: Qualitatively normal right ventricular size and normal systolic function. Ventricular Septum: There is no residual ventricular septal defect. Aortic Valve: Normal aortic valve Doppler pattern. There is no aortic valve stenosis. There is no aortic valve regurgitation. Left Ventricular Outflow Tract: There is no left ventricular outflow tract obstruction. Pulmonary Valve: There is trivial pulmonary valve stenosis. The maximum velocity across the pulmonic valve is 2.06 m/s and the peak instantaneous gradient is 17.0 mmHg. There is mild pulmonary valve regurgitation. The pulmonary valve leaflets appear thickened and dome during systole. Aorta: The aortic root is normal in size. The ascending aorta, transverse arch and descending aorta appear unobstructed. There is no coarctation of the aorta. There is normal Doppler pattern in the aorta. Pulmonary Arteries: The proximal branch pulmonary arteries appear normal without evidence of stenosis. Coronary Arteries: The coronary arteries were not evaluated. Pericardium: There is no pericardial effusion. AV Canal/Complex Inlet/Single Ventricle: Mild left atrioventricular valve regurgitation is present. Trivial right atrioventricular valve regurgitation is present. There is no right and trivial left atrioventricular valve stenosis. The left atrioventricular valve leaflets are mildly thickened, consistent with post-surgical changes. LV (2D) Normal Ranges: IVSd: 0.90 cm (0.6-1.1 cm) LVIDd: 3.59 cm (3.9-5.9 cm) LVIDs: 2.53 cm LVPWd: 0.99 cm (0.6-1.1 cm) LV major d, A4C: 7.08 cm LV mass index: 65.9 g/m2 LV Mass (Devereux) 98.48 g Left Ventricular Systolic Function LV % FS, 2D: 29.6 % LV EF (2D MOD A4C): 60 % LV vol s, MOD A4C: 23.7 ml LV vol d, MOD A4C: 59.5 ml LV % FAC, A4C 43.1 % LV Diastolic Function MV E/A ratio Normal Ranges: E/A Ratio: 1.38 (1.0-2.2) MV e' 0.06 m/s (>8.0) Mitral annulus medial e' 0.09 m/s Mitral annulus medial a' 0.04 m/s Medial S' (MV Septal S') 0.06 m/s Lateral e' (MV e') 0.06 m/s Lateral a' (MV [place] A') 0.0 (more content not included)... Normal [facility] ECG 12 lead (Ancillary Perfo rmed)Ordered By: Julian Gusman on 09-01-2023 Atrial Rate [address] [facility] Work Phone: P [place] [address] [facility] Work Phone: P Offset [address] [facility] Work Phone: P Onset [address] [facility] Work Phone: [place] Interval [address] [facility] Work Phone: Q Onset [address] [facility] Work Phone: QRS Count [address] [facility] Work Phone: QRS Duration [address] [facility] Work Phone: QT Interval [address] [facility] Work Phone: QTC Calculation(Bazett) [address] [facility] Work Phone: QTC Fredericia [address] [facility] Work Phone: R [place] [address] [facility] Work Phone: T [place] [address] [facility] Work Phone: T Offset [address] [facility] Work Phone: Ventricular Rate 64 BPM [facility] Work [facility]: [facility] Work Phone: ECG 12 lead (Ancillary Perfo rmed)on 09-01-2023 Sinus rhythm with Premature atrial complexes with Aberrant conduction Otherwise normal ECG When compared with ECG of 31-AUG-2021 13:49, Aberrant conduction is now Present Nonspecific T wave abnormality no longer evident in Inferior leads Confirmed by Julian Gusman ([id number]) on 09/01/2023 5:27:49 PM MUSE Julian Gusman MD - 09/01/2023 Sinus rhythm with Premature atrial complexes with Aberrant conduction Otherwise normal ECG When compared with ECG of 31-AUG-2021 13:49, Aberrant conduction is now Present Nonspecific T wave abnormality no longer evident in Inferior leads Confirmed by Julian Gusman ([id number]) on 09/01/2023 5:27:[address] [facility] Work Phone: Follow Up (Pulmonary Medicin e)on 11-14-2022 Follow Up (Pulmonary Medicine) Diagnoses/Problems Daytime sleepiness (780.54) (R40.0) Provider Impressions Impressions: 1. There is no significant sleep-related breathing disorder noted during the study. 2. Lowest oxygen saturation observed was at 92%. 3. Fragmentation of sleep seen during the study appear to be due to spontaneous arousals. 4. Daytime sleepiness. This does vary considerably from day-to-day. Refer to my original consult. Recommendations: 1. Patient does not qualify for CPAP therapy or supplemental oxygen therapy. This note was transcribed using the [employer] Dictation system. There may be grammatical, punctuation, or verbiage errors that occur with voice recognition programs. Chief Complaint LOS ARAIZA is here for a follow-up visit and here with mother, Trung. Reason for Visit: Review sleep study results. Appointment requested by: Dr. Dick (Cardiology); Dr. Stewart (PCP). History of Present IllnessPatient along with her mother were seen today in the office on a follow-up to review her sleep study that was done on 10/09/2022. These results showed that the patient had a RDI 4% of 1.4. Her low oxygen saturation during the night study was 92%. There is no snoring noted on the night study. All the results of the testing were reviewed with the mother. There was a notation from the night tach that there was 1 bigeminy noted on the telemetry when the biocals were being done. Review of Systems There were no change in review of systems according to the mother. 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, S/P complete surgical repair in [place] as a child COVID-19 vaccine series completed (V87.49) (Z92.29) Daytime sleepiness (780.54) (R40.0) Down syndrome (758.0) (Q90.9) Encounter for immunization (V03.89) (Z23) Examination, routine, over 18 years of age (V70.0) (Z00.00) Excessive daytime sleepiness (780.54) (G47.19) Facial trauma (959.09) (S09.93XA) Hypermetropia of both eyes (367.0) (H52.03) Hypernasality (784.43) (R49.21) Left axis deviation (794.31) (R94.31) New daily persistent headache (339.42) (G44.52) Normal left ventricular systolic function and wall motion Obsessive-compulsive behavior (300.3) (R46.81) Obsessive-compulsive disorder, unspecified (300.3) (F42.9) Obstructive sleep apnea, adult (327.23) (G47.33) Pneumonia (486) (J18.9) Pulmonary regurgitation (424.3) (I37.1) 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) Seizure-like activity (780.39) (R56.9) Sinus arrhythmia seen on electrocardiogram (427.89) (I49.8) Sinus bradycardia on ECG (427.89) (R00.1) Sleep apnea (780.57) (G47.30) Snoring (786.09) (R06.83) Status post cervical spinal fusion (V45.4) (Z98.1) 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) Added by Problem List Migration; 2013-06-28; Moved to 2013 9:35PM Vasovagal syncope (780.2) (R55) Velopharyngeal insufficiency (VPI), 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) Past Medical History History of Acquired hallux valgus of left foot (735.0) (M20.12) Resolved Date: 02 Jun 2017 History of Astigmatism (367.20) (H52.209) Resolved Date: 02 Jun 2017 Added by Problem List Migration; 2013-06-28; Moved to 2013 9:35PM History of Bilateral sensorineural hearing loss (389.18) (H90.3) Resolved Date: 02 Jun 2017 History of Bilateral sensorineural hearing loss (389.18) (H90.3) Resolved Date: 16 Jun 2017 History of Cellulitis of finger of left hand (681.00) (L03.012) Resolved Date: 16 Jun 2017 History of Cleft leaflet, 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) S/P mitral cleft surgery with small residual cleft noted subsequently on echocardiogram History of 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) Resolved Date: 02 Jun 2017 History of Conductive hearing loss, bilateral (389.06) (H90.0) Resolved Date: 02 Jun 2017 History of Delayed union of fracture of hand (V54.19) (S62.90XG) Resolved Date: 02 Jun 2017 History of Encounter for immunization (V03.89) (Z23) Resolved Date: 02 Jun 2017 History of Failure to gain weight (0-17) (783.41) (R62.51) Resolved Date: 02 Jun 2017 Added by Problem List Migration; 2013-06-28; Moved to Suppressed 2013 9:35PM History of blepharitis (V12.49) (Z86.69) Resolved Date: 02 Jun 2017 Added by Problem List Migration; 2013-06-28; Moved to 2013 9:35PM History of developmental delay (V11.9) (Z87.898) Resolved Date: 02 Jun 2017 History of (more content not included)... Normal [employer] Tobacco Screening.on 023 Fall risk assessment a) No falls within the last year [facility] [facility] [place] Work Phone: Tobacco use status CP b) No [facility] nd 400 DO Work Phone: Ancillary Visit (Sleep Lab)o n 10-09-2022 Ancillary Visit (Sleep Lab) Risk Screening Initial Fall Risk Screening: LOS has not fallen in the last 6 months. Her fall did not result in injury. LOS does not have a fear of falling. She does not need assistance with sitting, standing or walking. Does not need assistance walking in her home. She does not need assistance in an unfamiliar setting. The patient is not using an assistive device. Sleep Study Appointment LOS ARAIZA arrived for her appointment on 10/09/2022 for PAP/NAP. The full study was completed. Signatures Electronically signed by : Erlinda Fernandez, ; Oct 10 2022 3:22AM EST (Author) Normal [employer] Consult (Pulmonary Medicine) on 09-17-2022 Consult (Pulmonary Medicine) Diagnoses/Problems Down syndrome (758.0) (Q90.9) History of snoring (V15.89) (Z87.898) Excessive daytime sleepiness (780.54) (G47.19) Sleep apnea (780.57) (G47.30) Provider Impressions Impressions: 1. Obstructive sleep apnea syndrome 2. History of snoring. 3. Daytime sleepiness. 4. Down syndrome. Recommendations: 1. We will schedule an in lab sleep study. 2. We will not start the patient on CPAP therapy until we have had an opportunity to review the results of the test. This note was transcribed using the [employer] Dict[employer] system. There may be grammatical, punctuation, or verbiage errors that occur with voice recognition programs. Chief Complaint LOS ARAIZA is here for an initial evaluation and here with mother, Trung. Reason for Visit: Eval for Sleep Apnea. Appointment requested by: Dr. Dick; PCP: Dr. Bianchi. History of Present IllnessThis is a 21-year-old female who was accompanied by her mother (adopted) with a complaint of feeling tired during the day. Patient has a known history of Down syndrome. Mother reports that child does take naps during the day when driving in a car to different locations that she spends time at. Apparently she does not however take naps on weekends when she is at home. The mother also reports that she does have some mild snoring when she lays down. Her usual sleep hours are 10:50 PM bedtime and she awakens about 7:30 in the morning. She denies drinking any beverages with caffeine. Mother does not report that she has stop breathing episodes. She denies any choking or gasping during sleep or morning headaches. She does however complain of some daytime sleepiness. Her [place] was 5 but it should be noted that the patient's responses to certain situations are variable. Mother reports that these problems been present for the past couple years. It was difficult to obtain accurate response from the patient in regards to difficulty with initiating and maintaining sleep. She does follow with a occupational rehabilitation aide on a regular basis. She has undergone several cardiac surgeries and has a history of tetralogy of Fallot and complete AVSD. She has a history of hypothyroidism and that is being followed by her family physician. She is also being followed closely by her occupational rehabilitation aide, Dr. Alvino Dick. There is a high reported incidence of obstructive sleep apnea in children with Down syndrome. This can be as high as 50%. Review of Systems Patient reports there is been about a 10 pound weight increase over the past year. As reported above she is being treated for some hypothyroidism. She is also been diagnosed with OCD and anxiety. All other review of systems were noncontributory. 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, S/P complete surgical repair in [place] as a child COVID-19 vaccine series completed (V87.49) (Z92.29) Encounter for immunization (V03.89) (Z23) Examination, routine, over 18 years of age (V70.0) (Z00.00) Facial trauma (959.09) (S09.93XA) Hypermetropia of both eyes (367.0) (H52.03) Hypernasality (784.43) (R49.21) Left axis deviation (794.31) (R94.31) New daily persistent headache (339.42) (G44.52) Normal left ventricular systolic function and wall motion Obsessive-compulsive behavior (300.3) (R46.81) Obsessive-compulsive disorder, unspecified (300.3) (F42.9) Pneumonia (486) (J18.9) Pulmonary regurgitation (424.3) (I37.1) 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) Seizure-like activity (780.39) (R56.9) Sinus arrhythmia seen on electrocardiogram (427.89) (I49.8) Sinus bradycardia on ECG (427.89) (R00.1) Status post cervical spinal fusion (V45.4) (Z98.1) 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) Added by Problem List Migration; 2013-06-28; Moved to [facility] 2013 9:35PM Vasovagal syncope (780.2) (R55) Velopharyngeal insufficiency (VPI), 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) Added by Problem List Migration; 2013-06-28; Moved to Suppressed 2013 9:35PM 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 Please see the dentist every 6 months for a teeth cleaning. - Maintain a healthy lifestyle, with intentional aerobic exercise 30 minutes per day or 150 minutes per week and a heart-healthy diet. Please let us know if you need any help or advice. Please contact us if you need medication refills, paperwork completed, or have any other questions or concerns. [facility] information: [facility]: [phone] - [facility] Coordinator: [phone] (scheduling) - After hours: call [phone] and ask cracking machine operator [place] [phone] ([facility] pager [phone]) - Email: [email or web address] We also recommend contacting our team through the [employer] portal; please let us know if you need help getting set up with the portal. When contacting us for refill requests, please notify us at least 2 business days before the refill is needed. You can call us at [phone] or make a request through the [employer] portal. If you need paperwork completed (such as an activity clearance form, work letter, [place] paperwork, etc.), please allow up to 7 business days for this to be completed after receipt of the request. You can send us the form and/or request by email ([email or web address]) or fax to [phone]. For cardiac clearance requests before surgery and other procedures (non-emergent), please allow a full business day from the receipt of the request. Chief Complaint Patient Name: LOS ARAIZA Provider: Alvino Dick MD : 2000 Date of Service: 09/06/2022 Referring: DIAGNOSES: 1. Tetralogy of Fallot/Complete AVSD - 06/01/1999: complete surgical repair of Tetralogy of Fallot and complete AV canal with patch closure of ASD, VSD, and an RV infundibular patch (Dr. Lopes, [facility] in [place]). - TTE 08/31/2021 Moderate to severe PI, mild PS, mild left AVV regurgitation, normal Biventricular function - TTE 08/24/2020: Cleft AVV-LT with mild regurgitation, mild WA, no residual shunt, normal Biventricular size and function - Echo 09/06/2022 Mild Left and Right AVV regurgitation, normal LV/RV size and function, Moderate to Severe PI PHT 100-110 ms (unchanged) 2. Cleft Lt AVV - TTE 08/31/2021 Mild Left AVV regurgitation - Echo 09/06/2022 Mild left and right AVV regurgitation 3. Pulmonary Insufficiency - TTE 08/31/2021 Moderate to severe WA (unchanged from previous ECHO 2018) - Echo 09/06/2022 Moderate to severe PI, PHT 100-110 ms, unchanged from 2020 4. Down Syndrome h/o Atlantoaxial instability s/p occipital cervical fusion ([facility] Neurosurgery, 12/2018) No formal sleep study Hypothyroid, managed by PCP 1 Sternotomy CC:MARTITA [facility] Adult Risk Screening Initial Fall Risk Screening: LOS has not fallen in the last 6 months. LOS does not have a fear of falling. She does not need assistance with sitting, standing or walking. Does not need assistance walking in her home. She does not need assistance in an unfamiliar setting. History of Present Illness INTERVAL HISTORY: I saw Los Araiza today in the [facility]. Los was diagnosed with congenital heart disease (tetralogy of Fallot with complete AV septal defect) at for which she underwent complete surgical repair during infancy. Since 2001 she was followed by our Pediatric Cardiology group @ [facility] (Drs. Mena, Ainsley, Shana, Joshua, Marion) on an annual basis with no active cardiac issues. She was hospitalized in 2018 for syncopal episodes with associated seizure activity. Neurology evaluation was normal. The syncopal episodes were felt to be likely vasovagal which improved overtime with hydration AND salt intake. She established care with [facility] team and was seen by Dr. Schultz in November 2018, prior to her occipital cervical fusion surgery by Dr. Carrington on December 08, 2018. Ms. Peraza was seen in clinic as scheduled visit. At her last visit in August 2021, she remained well from cardiac stand point. Per her mother, she had no symptoms of chest pain/palpitations/PARIKH/c yanosis/decline in energy levels/near syncope/syncope/pedal edema/orthopnea/paroxys mal noct (more content not included)... Normal [employer] Blood Pressure Cuff Sizeon 1 Blood Pressure Cuff Size Adult [facility] Work Phone: No Panel Informationon 08-31 [facility] Work Phone: Otheron 06-05-2020 XR Cervical spine 3 views Interpreted by: CAROLINA CAROLINA06/05/20 14:08MRN: [id number] Name: JOSE GLOS STUDY:SPINE, CERVICAL, 2 OR 3 VIEWS; ; 06/05/2020 1:27 pm INDICATION:had OC-Fusion 12/08/2018. COMPARISON:12/06/2019 cervical spine radiograph. ORDERING CLINICIAN:OZZY CARRINGTON FINDINGS:Postsurgical changes of the cervical spine are again identified withposterior spinal fusion rods extending from the occiput to the [id number] body. The visualized metallic hardware is intact. The atlantodental interval is 5 mm, unchanged. Prevertebral soft tissues are intact. IMPRESSION:1. Postsurgical changes of cervical spine with intact posteriorspinal fusion rods. I personally reviewed the images/study and I agree with the findingsas stated. This study was interpreted at [place], [place].Electronically signed by: CAROLINA CAROLINA 06/05/20 14:08 Normal -Pediatrics- [place] [facility] Work Phone: Otheron 03-08-2019 XR Cervical spine 3 views Interpreted by: ALEJO SCHMITZ [facility]/08/19 09:28MRN: [id number] Name: BELINDADEBBI LOS STUDY:PD SPINE, CERVICAL, 2 OR 3 VIEWS; 03/08/2019 8:08 am INDICATION:POST OP O-C FUSION 12/08/2018. COMPARISON:12/09/2018 ORDERING CLINICIAN:OZZY CARRINGTON FINDINGS:Two views of the cervical spine are provided for interpretation. Redemonstration of posterior spinal fusion, with no evidence ofperihardware lucency or fracture. Pre odontoid space is again mildly widened, measuring 4.6 mm in size.Paratubal soft tissues are unremarkable. There is again reversedcervical lordosis. IMPRESSION:Postoperativ e occipital to C4 posterior spinal fusion, with noevidence of hardware failure I personally reviewed the images/study and Dr. Lay'sinterpreta tion and I agree with the findings as stated. This studywas performed , analyzed and interpreted at [place], [place].Electronically signed by: ALEJO REEVES 03/08/19 09:28 Normal [facility] Work Phone: Vital Signs Date Time Vital Sign Value Performing Clinician Facility 09-03-2024 09:24-0400 Body height 165.1 cm Alvino Dick MD Work Phone: [facility] 09-03-2024 09:24-0400 Body mass index (BMI) [Ratio] 17.32 kg/m2 Alvino Dick MD Work Phone: [facility] 09-03-2024 09:24-0400 Body weight 47.22 kg Alvino Dick MD Work Phone: [facility] 09-03-2024 09:24-0400 Diastolic blood pressure 75 mm[Hg] Alvino Dick MD Work Phone: [facility] 09-03-2024 09:24-0400 Heart rate 69 /min Alvino Dick MD Work Phone: [facility] 09-03-2024 09:24-0400 SaO2% (BldA) [Mass fraction] 99 % Alvino Dick MD Work Phone: [facility] 09-03-2024 09:24-0400 Systolic blood pressure 151 mm[Hg] Alvino Dick MD Work Phone: [facility] 09-05-2023 10:28-0400 Body mass index (BMI) [Ratio] 21.62 kg/m2 Alvino Dick MD Work Phone: [facility] 09-05-2023 10:28-0400 Body weight 45.31 kg Alvino Dick MD Work Phone: [facility] 09-05-2023 10:28-0400 Diastolic blood pressure 48 mm[Hg] Alvino Dick MD Work Phone: [facility] 09-05-2023 10:28-0400 Heart rate 62 /min Alvino Dick MD Work Phone: [facility] 09-05-2023 10:28-0400 SaO2% (BldA) [Mass fraction] 98 % Alvino Dick MD Work Phone: [facility] 09-05-2023 10:28-0400 Systolic blood pressure 100 mm[Hg] Alvino Dick MD Work Phone: [facility] 11-14-2022 14:03-0500 Body height 144.78 cm Yael E Miedel Work Phone: -[facility]-[place] 400 DO Work Phone: 11-14-2022 14:03-0500 Body mass index (BMI) [Ratio] 22.07 kg/m2 Yael E Miedel Work Phone: -[facility] 400 DO Work Phone: 11-14-2022 14:03-0500 Body surface area Derived from formula 1.35 m2 Yael E Miedel Work Phone: -[facility]-[place] 400 DO Work Phone: 11-14-2022 14:03-0500 Body temperature 97.8 [degF] Yael E Miedel Work Phone: -[facility] 400 DO Work Phone: 11-14-2022 14:03-0500 Body weight 46.27 kg Yael E Miedel Work Phone: -[facility] 400 DO Work Phone: 11-14-2022 14:03-0500 Diastolic blood pressure 64 mm[Hg] Yael E Miedel Work Phone: -[facility] 400 DO Work Phone: 11-14-2022 14:03-0500 Heart rate 82 /min Yael E Miedel Work Phone: [facility] 400 DO Work Phone: 11-14-2022 14:03-0500 SaO2% (BldA) [Mass fraction] 97 % Yael Mcknighteddivya Work Phone: [facility] 400 DO Work Phone: 11-14-2022 14:03-0500 Systolic blood pressure 102 mm[Hg] Yael Mcknighteddivya Work Phone: [facility] 400 DO Work Phone: 11-14-2022 14:03-0500 12 1 Yael Mcknighteddivya Work Phone: [place] [address] DO Work Phone: Comment on above: [facility] 09-17-2022 13:50-0500 Body height 144.78 cm Yael Stewart Work Phone: [facility] Work Phone: 09-17-2022 13:50-0500 Body mass index (BMI) [Ratio] 22.46 kg/m2 Yael Stewart Work Phone: [facility] Work Phone: 09-17-2022 13:50-0500 Body surface area Derived from formula 1.36 m2 Yael Stewart Work Phone: [facility] Work Phone: 09-17-2022 13:50-0500 Body temperature 98.2 [degF] Yael Mcknighteddivya Work Phone: [facility] Work Phone: 09-17-2022 13:50-0500 Body weight 47.08 kg Yael Mcknighteddivya Work Phone: [facility] Work Phone: 09-17-2022 13:50-0500 Diastolic blood pressure 66 mm[Hg] Yael Mcknighteddivya Work Phone: [facility] Work Phone: 09-17-2022 13:50-0500 Heart rate 64 /min Yael Stewart Work Phone: [facility] Work Phone: 09-17-2022 13:50-0500 SaO2% (BldA) [Mass fraction] 98 % Yael Stewart Work Phone: [facility] Work Phone: 09-17-2022 13:50-0500 Systolic blood pressure 104 mm[Hg] Yael Stewart Work Phone: [facility] Work Phone: 09-17-2022 13:50-0500 12 1 Yael Stewart Work Phone: [facility] Work Phone: Comment on above: [facility] 09-06-2022 10:19-0400 Body height 144.78 cm Yael Stewart Work Phone: [facility]Xfpdrtjblc[facility] Work Phone: 09-06-2022 10:19-0400 Body mass index (BMI) [Ratio] 21.43 kg/m2 Yael Stewart Work Phone: HN-Xfbxsvihzg-Jnfv ra [facility] Work Phone: 09-06-2022 10:19-0400 Body surface area Derived from formula 1.33 m2 Yael Stewart Work Phone: IB-Caahmfhywp-Dmge ra [facility] Work Phone: 09-06-2022 10:19-0400 Body weight 44.92 kg Yael Mcknightedel Work Phone: BL-Kilgacuwtf-Qymt ra [facility] Work Phone: 09-06-2022 10:19-0400 Diastolic blood pressure 66 mm[Hg] Yael Stewart Work Phone: OY-Cjfniptksx-Lfws ra [facility] Work Phone: 09-06-2022 10:19-0400 Heart rate 66 /min Yael Stewart Work Phone: QC-Vjzalyebcz-Wmjj ra [facility] Work Phone: 09-06-2022 10:19-0400 Respiratory rate 16 /min Yael Stewart Work Phone: XC-Rpsmlaaqtn-Hjis ra [facility] Work Phone: 09-06-2022 10:19-0400 SaO2% (BldA) [Mass fraction] 97 % Yael Stewart Work Phone: RI-Cnxsqrdhwv-Jejs ra [facility] Work Phone: 09-06-2022 10:19-0400 Systolic blood pressure 102 mm[Hg] Yael Stewart Work Phone: VF-Okpvbswdxl-Dzmx ra [facility] Work Phone: 08-31-2021 13:17-0400 Body height 144.78 cm Karen Nickerson Work Phone: PI-Qwwtzujwgk-Qwxk ra [facility] Work Phone: 08-31-2021 13:17-0400 Body mass index (BMI) [Ratio] 20.42 kg/m2 Karen Nickerson Work Phone: RQ-Ljydxgbrbh-Eilx ra [facility] Work Phone: 08-31-2021 13:17-0400 Body surface area Derived from formula 1.31 m2 Karen Nickerson Work Phone: HE-Ecbzziwrau-Fcmx ra [facility] Work Phone: 08-31-2021 13:17-0400 Body weight 42.8 kg Karen Nickerson Work Phone: [facility] Work Phone: 08-31-2021 13:17-0400 Diastolic blood pressure 62 mm[Hg] Karen Nickerson Work Phone: [facility] Work Phone: 08-31-2021 13:17-0400 Heart rate 51 /min Karen Nickerson Work Phone: [facility] Work Phone: 08-31-2021 13:17-0400 Respiratory rate 14 /min Karen Nickerson Work Phone: [facility] Work Phone: 08-31-2021 13:17-0400 SaO2% (BldA) [Mass fraction] 100 % Karen Nickerson Work Phone: [facility] Work Phone: 08-31-2021 13:17-0400 Systolic blood pressure 101 mm[Hg] Karen Nickerson Work Phone: [facility] Work Phone: 06-07-2021 10:33-0400 Body height 143.51 cm Karen Nickerson Work Phone: [facility] Work Phone: 06-07-2021 10:33-0400 Body mass index (BMI) [Ratio] 19.82 kg/m2 Karen Nickerson Work Phone: [facility] Work Phone: 06-07-2021 10:33-0400 Body surface area Derived from formula 1.27 m2 Karenalison Nickerson Work Phone: [facility] Work Phone: 06-07-2021 10:33-0400 Body weight 40.82 kg Karen Martinezka Work Phone: [facility] Work Phone: 06-05-2020 15:36-0400 BMI (Body Mass Index) 18.76 kg/m2 Karen Golonka RN-Wjuiytpmvo-Xjao [facility] Work Phone: 06-05-2020 15:36-0400 Body Temperature 99.61 [degF] Karen Lawtononka EJ-Fkhgikuuvx-B ent [facility] [place] [facility] Work Phone: Comment on above: Method: Oral 06-05-2020 15:36-0400 Body weight 39.5 kg Karen Golonka EO-Phcaxpnmif-Iq nt [facility] [place] [facility] Work Phone: 06-05-2020 15:36-0400 BP Diastolic 62 mm[Hg] Karen Golonka CL-Pxwpvaxgrn-So nt er [place] [facility] Work Phone: Comment on above: Location: LUE; Position: Sitting 06-05-2020 15:36-0400 BP Systolic 97 mm[Hg] Karen Golonka MI-Wbtlnslgbv-Tk nt [facility] [place] [facility] Work Phone: Comment on above: Location: LUE; Position: Sitting 06-05-2020 15:36-0400 BSA (Body Surface Area) 1.27 m2 Karen Golonka QW-Ukqrvzovte-Onmy er [place] [facility] Work Phone: 06-05-2020 15:36-0400 Height 145.1 cm Karen Golonka FQ-Lnxaaghhua-Oh nt er [facility] Work Phone: 06-05-2020 15:36-0400 Pulse (Heart Rate) 51 /min Karen Golonka MG-Pediatrics -[facility] Work Phone: 06-05-2020 15:36-0400 Respiratory Rate 20 /min Karen Golonka FO-Ckrakxnsfm-R ent [facility] [place] [facility] Work Phone: 11-15-2019 17:11-0500 Body weight 36.91 kg Felicia Fraga [facility] Work Phone: 11-15-2019 17:11-0500 BP Diastolic 57 mm[Hg] Felicia Fraga [facility] Work Phone: 11-15-2019 17:11-0500 BP Systolic 107 mm[Hg] Felicia Fraga [facility] Work Phone: 11-15-2019 17:11-0500 Pulse (Heart Rate) 51 /min Felicia Fraga [facility] Work Phone: 03-12-2019 11:15-0400 BMI (Body Mass Index) 17.7 kg/m2 Sariah Merissa HW-Lrlkghemcw-Lqhh [place] [address] Work Phone: 03-12-2019 11:15-0400 Body Temperature 98.2 [degF] Sariah Merissa MG-Pediatrics- [place] [address] Work Phone: Comment on above: Method: Tympanic 03-12-2019 11:15-0400 BP Diastolic 66 mm[Hg] Sariah Chester VT-Ltvhvizdtn-B [facility] [place] [address] Work Phone: Comment on above: Location: RUE; Position: Sitting 03-12-2019 11:15-0400 BP Systolic 116 mm[Hg] Sariah Chester BM-Iahlajpfde-E [facility] [place] [address] Work Phone: Comment on above: Location: RUE; Position: Sitting 03-12-2019 11:15-0400 BSA (Body Surface Area) 1.22 m2 Sariah Merissa AM-Mwhmpvizvr-Nqqq [place] [address] Work Phone: 03-12-2019 11:15-0400 Height 143.8 cm Sariah Merissa CX-Lswmwuxohk-E [place] [address] Work Phone: 03-12-2019 11:15-0400 Pulse (Heart Rate) 75 /min Sariah Merissa MG-Pediatric s-[place] [address] Work Phone: 03-12-2019 11:15-0400 Respiratory Rate 18 /min Sariah Craven MG-Pediatrics- [place] [address] Work Phone: 03-12-2019 11:15-0400 Weight 36.6 kg Sariah Craven WE-Ucvcamiwkr-V [place] [address] Work Phone: 03-08-2019 11:15-0400 BMI (Body Mass Index) 17.12 kg/m2 Karen Golonka FD-Tgxvqdhbgkgd-Jy [place] Work Phone: 03-08-2019 11:15-0400 Body Temperature 97.8 [degF] Karen Golonka MG-Neurosurgery -[place] Work Phone: 03-08-2019 11:15-0400 Body weight 36.51 kg Karen Golonka MG-Neurosurgery- [place] Work Phone: 03-08-2019 11:15-0400 BP Diastolic 47 mm[Hg] Karen Golonka MG-Neurosurgery- [place] Work Phone: 03-08-2019 11:15-0400 BP Systolic 100 mm[Hg] Karen Golonka MG-Neurosurgery- [place] Work Phone: 03-08-2019 11:15-0400 BSA (Body Surface Area) 1.23 m2 Karen Golonka HS-Cmamfpilfsho-Bp [place] Work Phone: 03-08-2019 11:15-0400 Height 146.05 cm Karen Golonka MG-Neurosurgery- [place] Work Phone: 03-08-2019 11:15-0400 Pulse (Heart Rate) 75 /min Karen Golonka MG-Neurosurge ry-[place] Work Phone: 03-08-2019 11:15-0400 Weight 36.51 kg Sariah Craven HG-Ksjjyknkya-U [place] [address] Work Phone: Encounters Encounter Date Encounter Type Care Provider Facility Start: 09-03-2024 End: 09-03-2024 Office outpatient visit 25 minutes Alvino Dick MD Work Phone: [facility] Comment on above: Tetralogy of Fallot (HHS-HCC) (Primary Dx); Complete common atrioventricular canal (HHS-HCC); Down syndrome Start: 09-03-2024 End: 09-03-2024 ambulatory ALVINO Dey MAYELIN [facility] Start: 07-07-2024 End: 07-07-2024 ambulatory ALVINO DICK [facility] Start: 09-05-2023 End: 09-05-2023 Office outpatient visit 25 minutes Alvino Dick MD Work Phone: [facility] Comment on above: Tetralogy of Fallot (Primary Dx); Complete common atrioventricular canal; Nonrheumatic pulmonary valve insufficiency; Residual left AV valve insufficiency Start: 08-26-2023 End: 08-26-2023 Subsequent hospital visit by physician Gloria Morales Nonv1 Holter/Ecg Resource [facility] Comment on above: Tetralogy of Fallot Start: 11-14-2022 Office outpatient vi sit 15 minutes Yael E Miedel [facility] Phone[facility] 400 DO Work Phone: Start: 11-14-2022 Patient encounter procedure Troy nnah E Miedel Work Phone: [facility] 400 DO Work Phone: Start: 11-14-[address] Rachel Grove Facility:[id number] Start: 10-09-2022 ambulatory RACHEL GROVE Facility:[id number] Start: 10-09-2022 Patient encounter procedure Troy nnah E Miedel Work Phone: [facility] Work Phone: Start: 09-17-[address] Alvino Dick Facility:[id number] Start: 09-17-2022 Office consultation new/estab patient 60 min Yael E Miedel Work Phone: [facility] 400 DO Work Phone: Start: 09-09-2022 AUDIT Yael sagastume Work Phone: [facility]ocvdfdjhj[facility] Work Phone: Start: 09-06-2022 Office outpatient vi sit 25 minutes Yael Stewart Work Phone: DE[facility]Khvreauvit-Jjcqyp [facility] Work Phone: Start: 09-06-[address] Yael Stewart Facility:[facility] Start: 08-30-2022 AUDIT Karen richards Work Phone: AF-Zqrhfmmagn-Rqsqym [facility] Work Phone: Start: 03-12-2022 Telephone encounter Karen Nickerson Work Phone: ZU-Xbuptorrkq-Crxunk [facility] Work Phone: Start: 08-31-2021 Office outpatient vi sit 25 minutes Karen Nickerson Work Phone: AP-Wrngxysyxb-Xcxygq [facility] Work Phone: Start: 08-31-2021 Patient encounter procedure Gr lance Nickerson Work Phone: DM-Lxqkfcxfll-Ystlrf [facility] Work Phone: Start: 06-07-2021 Office outpatient vi sit 10 minutes Karen Nickerson Work Phone: [facility] Work Phone: Start: 08-24-2020 Patient encounter procedure Karen Nickerson MD VX-Dfzisizyoa-Rmzzcg 3150 Work Phone: Start: 06-05-2020 Patient encounter procedure Karen Nickerson VT-Hjysizapoc-Cwsmzx [place] [facility] Work Phone: Start: 12-14-2019 Patient encounter procedure Karen Nickerson SS-Cbepcbfhsz-Mwddqn [place] [facility] Work Phone: Start: 12-06-2019 Patient encounter procedure Karen Golonka YH-Mftqtaezqe-Ycefrs [place] [facility] Work Phone: Start: 11-29-2019 Patient encounter procedure Karen Nicekrson SB-Xektzkaavv-Xigqcf [facility] Work Phone: Start: 11-15-2019 Patient encounter procedure Felicia Hernandez [facility] Work Phone: Start: 09-29-2019 Patient encounter procedure Karen Nickerson TC-Bzijbbgycc-Bmpoem [place] [facility] Work Phone: Start: 08-19-2019 Patient encounter procedure Karen Nickerson KO-Ckvzssflbn-Gfwnkx [facility] Work Phone: Start: 07-27-2019 Patient encounter procedure Karen Nickerson HE-Melkbdhxpi-Fzllwf [facility] Work Phone: Start: 07-23-2019 Patient encounter procedure Karen Nickerson GW-Nunvmhxcjs-Bjkymx [facility] Work Phone: Start: 07-08-2019 Patient encounter procedure Karen Nickerson WP-Qjgwfwqbjd-Pjnmep [place] [facility] Work Phone: Start: 06-07-2019 Patient encounter procedure Karen Nickerson RX-Hrsfeiniui-Fhojnc [place] [facility] Work Phone: Start: 03-12-2019 Patient encounter procedure Sariah Craven QC-Rmrodwmzzd-Kjpblxz [place] [address] Work Phone: Start: 03-08-2019 Patient encounter procedure Karen Nickerson RW-Cfoghksmyymq-Tqerd marly Work Phone: Start: 02-01-2019 Patient encounter procedure KARENALISON NICKERSON Facility:[id number] Start: 02-01-2019 Patient encounter procedure KAREN NICKERSON Facility:[id number] Start: 01-25-2019 Patient encounter procedure Karen Nickerson SW-Cxihsiymkjgw-Tezic marly Work Phone: Start: 12-31-2018 Patient encounter procedure Karen Nickerson WX-Eglfvowxtjbs-Wtfdn marly Work Phone: Start: 12-21-2018 Patient encounter procedure Karen Nickerson SV-Phmbiebvibvh-Sodad marly Work Phone: Start: 12-07-2018 Patient encounter procedure Karen Nickerson JT-Zkhspnkbfdtp-Wdmpg marly Work Phone: Start: 12-01-2018 Patient encounter procedure Karen Nickerson OR-Dyrwqttcwgbk-Jwikf marly Work Phone: Start: 11-27-2018 Patient encounter procedure Karen Nickerson PJ-Bqiajlsatwqo-Wphqo marly Work Phone: Start: 11-26-2018 Patient encounter procedure Karen Nickerson MN-Egfxztqayqyl-Gdlwv marly Work Phone: Start: 11-09-2018 Patient encounter procedure Karen Nickerson AH-Blfcsyrxeccw-Doeuy marly Work Phone: Start: 11-04-2018 End: 02-01-2019 Patient encounter procedure KAREN NICKERSON Facility:[id number] Start: 10-22-2018 Patient encounter procedure Karen Nickerson PA-Iqvptrlubdce-Ltlze marly Work Phone: Start: 09-30-2018 Patient encounter procedure Karen Nickerson JO-Isnzudkmyvhb-Nnvqs marly Work Phone: Start: 09-30-2018 Patient encounter procedure Karen Nickerson VN-Svavudexzcer-Drxlz marly Work Phone: Start: 09-18-2018 Patient encounter procedure Karen Nickerson DO-Gumjmopqhjjw-Swmgg mraly Work Phone: Start: 08-05-2018 End: 11-03-2018 Patient encounter procedure KAREN NICKERSON Facility:[id number] Start: 07-10-2018 End: 08-03-2018 Patient encounter procedure KAREN NICKERSON Facility:[id number] Start: 06-12-2018 Patient encounter procedure Karen Nickerson ZC-Jlkvxtndmxrt-Lagmh marly Work Phone: Start: 06-08-2018 Patient encounter procedure Karen Nickerson WO-Yullmbvczyak-Mohzy marly Work Phone: Start: 06-05-2018 End: 07-04-2018 Patient encounter procedure KAREN NICKERSON Facility:[id number] Start: 05-25-2018 End: 06-03-2018 Patient encounter procedure KAREN NICKERSON Facility:[id number] Start: 05-21-2018 Patient encounter procedure Karen Nickerson VE-Mwreomacqwpe-Vabdk marly Work Phone: Start: 05-08-2018 Patient encounter procedure Karen Nickerson AC-Zxsuwiocdwcc-Umrta marly Work Phone: Start: 04-22-2018 Patient encounter procedure Karen Nickerson YM-Imjtgcqkirnr-Mdxpd marly Work Phone: Start: 03-19-2018 Patient encounter procedure Karen Nickerson FB-Magrpopzwgyz-Ljwqp marly Work Phone: Start: 12-19-2017 Patient encounter procedure Karen Nickerson AH-Sveccicfatqb-Fdiaa marly Work Phone: Start: 11-27-2017 Patient encounter procedure Karen Nickerson BP-Bvfffvpclkuk-Lbtue marly Work Phone: Start: 11-20-2017 Patient encounter procedure Karen Nickerson VK-Hejwsnvbcavr-Froes marly Work Phone: Start: 09-22-2017 Patient encounter procedure Karen Nickerson LS-Jzvjzhaztxnx-Hedvu marly Work Phone: Start: 09-10-2017 Patient encounter procedure Karen Nickerson IX-Lvsjavffdbqc-Uklkv marly Work Phone: Start: 06-16-2017 Patient encounter procedure Karen Nickerson LZ-Bhfxpynrfhqb-Srslg marly Work Phone: Start: 06-12-2017 Patient encounter procedure Karen Nickerson OO-Hmrycbgddico-Mxpmw marly Work Phone: Start: 06-02-2017 Patient encounter procedure Karen Nickerson DV-Ycspdcmmzuui-Rfduo marly Work Phone: Start: 03-12-2017 Patient encounter procedure Karen Nickerson RA-Xhslughgggds-Xmdri marly Work Phone: Patient encounter status Karen Nickerson MD AA-Ujhpwhhsfn-Zqimvw 4538 Work Phone: Procedures Date Procedure Procedure Detail Performing Clinician Start: 08-26-2023 Ecg routine ecg w/le ast 12 lds trcg only w/o i&r Alvino Dick MD Work Phone: Start: 12-06-2019 Thyrotropin [Units/v olume] in Serum or Plasma [facility] Start: 03-08-2019 CT C Spine without Contrast Karen Nickerson Adenoidectomy withou t tonsillectomy Karen Nickerson History of Anesthesi a For Repair Of Cleft Palate Karen Nickerson History of Atriovent ricular Canal Repair Karen Nickerson History of Complete Tetralogy Of Fallot Repair Karen Nickerson History of Dental Surgery Gr lance Nickerson History of Ear Press ure Equalization Tube, Insertion, Bilaterally Karen Nickerson Tonsillectomy Karen shukla Plan of Treatment Date Care Activity Detail Author Start: 2048 Zoster Vaccines (1 o f 2) Zoster Vaccines (1 of 2) [facility] Start: 09-15-2025 End: 09-15-2025 Patient encounter procedure [facility] Start: 09-03-2025 End: 03-03-2026 US Heart Transthoracic Adult Congenital Transthoracic Echo (TTE) Complete Congenital Echo Routine Tetralogy of Fallot (HHS-HCC) Complete common atrioventricular canal (HHS-HCC) Down syndrome (HHS-HCC) Expected: 09/03/2025 (Approximate), Expires: 03/03/2026 [facility] Work Phone: Comment on above: Expected: 09/03/2025 (Approximate), Expires: 03/03/2026 Start: 09-05-2024 End: 03-05-2025 Heart Transthoracic Adult Congenital Transthoracic Echo (TTE) Complete Congenital Echo Routine Tetralogy of Fallot Complete common atrioventricular canal 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 Start: 07-04-2024 Influenza vaccination Influenza Vacc ine (#1) [facility] Start: 09-05-2023 FUVADLTCON, Provider : Alvino Dick, Status: Pen, Time: 11:00 AM FUVADLTCON, Provider: Alvino Dick, Status: Pen, Time: 11:00 AM CI-Aiqzocugxk-Ktve ra [facility] Work Phone: Start: 09-05-2023 End: 09-05-2023 Clinical Support [facility] Start: 07-04-2023 Influenza vaccination Influenza Vacc ine (#1) [facility] Start: 09-17-2022 NPV, Provider: Rachel Groev, Status: Pen, Time: 1:30 PM NPV, Provider: Rachel Grove, Status: Pen, Time: 1:30 PM RN-Gyvagrhoim-Vful ra [facility] Work Phone: Start: 09-06-2022 FUVADLTCON, Provider : Alvino Dick, Status: Pen, Time: 11:00 AM FUVADLTCON, Provider: Alvino Dick, Status: Pen, Time: 11:00 AM MZ-Czwdszvkjl-Lapr ra [facility] Work Phone: Start: 12-11-2021 DTaP/Tdap/Td Vaccine s (7 - Td or Tdap) DTaP/Tdap/Td Vaccines (7 - Td or Tdap) [facility] Start: 03-15-2021 COVID-19 Vaccine (3 - Pfizer series) COVID-19 Vaccine (3 - Pfizer series) [facility] Start: 12-06-2020 Thyroid stimulating hormone measurement TSH Level [facility] Start: 12-07-2019 Assay of free thyroxine T4 - Free Thyroxine, Serum IE-Iogcujrwlq-Wamj Admin [facility] 737 Work Phone: Start: 12-07-2019 Complete blood count CBC Level [facility] Start: 12-07-2019 TSH Qn TSH - Thyroid Stimulating Hormone, Serum QP-Shzoyabtep-Mvrx Admin [facility] 737 Work Phone: Start: 2019 Screening for malignant neoplasm of cervix [facility] Start: 03-08-2019 CT C Spine wit hout Contrast QI-Pqluxdmoxtet[facility] Work Phone: Start: 2016 Diabetes mellitus screening Diabetes Screening [facility] Start: 2016 Hepatitis C screening Hepatitis C Sc reezhao [facility] Start: 09-08-2013 Pneumococcal Vaccine : Pediatrics (0 to 5 Years) and At-Risk Patients (6 to 64 Years) (2 - PCV) Pneumococcal Vaccine: Pediatrics (0 to 5 Years) and At-Risk Patients (6 to 64 Years) (2 - PCV) [facility] Start: 09-08-2013 Pneumococcal Vaccine : Pediatrics (0 to 5 Years) and At-Risk Patients (6 to 64 Years) (2 of 2 - PCV) Pneumococcal Vaccine: Pediatrics (0 to 5 Years) and At-Risk Patients (6 to 64 Years) (2 of 2 - PCV) [facility] Start: 03-30-2009 Hepatitis A Vaccines (2 of 2 - 2-dose series) Hepatitis A Vaccines (2 of 2 - 2-dose series) [facility] Start: 2001 Sleep Study Sleep Study [facility] Start: 1998 HIV screening HIV Screening [facility] Start: 1998 Lipid panel Lipid Panel [facility] Start: 1998 Medicare Annual Wellness Visit Medicare Annual Wellness Visit (AWV) [facility] Start: 1998 Yearly Adult Physical Yearly Adult P hysical [facility] End: 08-26-2023 ECG 12 lead (Ancillary Performed) [facility] Work Phone: Comment on above: Once for 1 Occurrenc es starting 08/26/2023 until 08/26/2023 UM-Pzgqupgusx-V [facility] [place] [address] Work Phone: NEGATED: Highlighted row has been ruled out! Planned Goals not documented WB-Tqhhjdomuvyx-Fn ins Work Phone: Immunizations Immunization Date Immunization Notes Care Provider Fa cility 09-19-2023 influenza virus vacc ine, unspecified formulation Alvino Dick MD Work Phone: [phone] [place] [address] Work Phone: 01-18-2021 Pfizer-BioNTech COVI D-19 Vacc 30 MCG/0.3ML Intramuscular Suspension Karen Nickerson Work Phone: [facility] Work Phone: 12-28-2020 Pfizer-BioNTech COVI D-19 Vacc 30 MCG/0.3ML Intramuscular Suspension Karen Benítez Jeredantonino Work Phone: [facility] Work Phone: 09-10-2019 Influenza, injectabl e, Madin Tomball Canine Kidney, quadrivalent with preservative Karen Nickerson Work Phone: [facility] Work Phone: 09-10-2019 influenza virus vacc ine, unspecified formulation [facility] Work Phone: 11-26-2018 influenza, seasonal, injectable [facility] Work Phone: 11-26-2018 influenza, injectabl e, quadrivalent, preservative free; Translations: [Fluzone Quadrivalent 0.5 ML Intramuscular Suspension] Karen Lawtonantonino [facility] Work Phone: Comment on above: Series: 09-10-2016 influenza virus vacc ine, unspecified formulation; Translations: [Influenza] Karen Nickerson Work Phone: [facility] Work Phone: Comment on above: Series: 09-10-2016 influenza, seasonal, injectable; Translations: [Influenza] Karen Golantonino [facility] Work Phone: 04-08-2016 meningococcal polysaccharide (groups A, C, Y and W-135) diphtheria toxoid conjugate vaccine (MCV4P); Translations: [Meningo (Menactra)] [facility] Comment on above: Series: 01-29-2013 human papilloma viru s vaccine, quadrivalent Karen Nickerson [facility] Work Phone: Comment on above: Series: 01-29-2013 meningococcal polysaccharide (groups A, C, Y and W-135) diphtheria toxoid conjugate vaccine (MCV4P) [facility] Comment on above: Series: 09-08-2012 influenza virus vacc ine, unspecified formulation Karen Nickerson Work Phone: [facility] Work Phone: Comment on above: Series: 09-08-2012 pneumococcal polysaccharide vaccine, 23 valent Karen Nickerson Work Phone: [facility] Comment on above: Series: 09-08-2012 influenza, seasonal, injectable Karen Nickerson [facility] Work Phone: 09-08-2012 pneumococcal polysaccharide vaccine, 23 valent Karen Nickerson [facility] Work Phone: 02-12-2012 human papilloma viru s vaccine, quadrivalent Karen Nickerson [facility] Work Phone: Comment on above: Series: 12-11-2011 human papilloma viru s vaccine, quadrivalent Karen Nickerson Work Phone: [facility] Work Phone: Comment on above: Series: 12-11-2011 tetanus toxoid, redu gladys diphtheria toxoid, and acellular pertussis vaccine, adsorbed Karen Nickerson Work Phone: [facility] Comment on above: Series: 12-11-2011 human papilloma viru s vaccine, quadrivalent Karen Nickerson [facility] Work Phone: 12-11-2011 tetanus toxoid, redu gladys diphtheria toxoid, and acellular pertussis vaccine, adsorbed Karen Nickerson [facility] Work Phone: 09-30-2008 hepatitis A vaccine, pediatric/adolescent dosage, 2 dose schedule [facility] Comment on above: Series: 09-30-2008 varicella virus vaccine Karen lucianohermila [facility] Comment on above: Series: 09-30-2008 hepatitis A and hepatitis B vaccine [facility] Work Phone: 08-03-2008 influenza, seasonal, injectable, preservative free Karen Nickerson Work Phone: [facility] Work Phone: 08-22-2005 influenza virus vacc ine, unspecified formulation Karen Nickerson Work Phone: [facility] Work Phone: Comment on above: Series: 08-22-2005 influenza, seasonal, injectable Karen Nickerson [facility] Work Phone: 08-08-2004 influenza virus vacc ine, unspecified formulation Karen Nickerson Work Phone: [facility] Work Phone: Comment on above: Series: 08-08-2004 influenza, seasonal, injectable Karen Nickerson [facility] Work Phone: 08-19-2003 diphtheria, tetanus toxoids and acellular pertussis vaccine Karen Nickerson Work Phone: [facility] Work Phone: 08-19-2003 diphtheria, tetanus toxoids and pertussis vaccine Karen Nickerson [facility] Work Phone: Comment on above: Series: 08-19-2003 measles, mumps and rubella virus vaccine [facility] Comment on above: Series: 08-11-2003 influenza, seasonal, injectable Karen Nickerson Work Phone: [facility] Work Phone: 08-11-2003 pneumococcal polysaccharide vaccine, 23 valent Karen Nickerson Work Phone: [facility] Work Phone: 09-01-2002 influenza, seasonal, injectable Karen Nickerson Work Phone: [facility] Work Phone: 09-01-2002 pneumococcal polysaccharide vaccine, 23 valent Karen Nickerson Work Phone: [facility] Work Phone: 09-30-2000 haemophilus influenz ae type b vaccine, PRP-OMP conjugate Karen Nickerson [facility] Work Phone: Comment on above: Series: 09-30-2000 influenza virus vacc ine, whole virus Karen Nickerson Work Phone: [facility] Work Phone: 09-30-2000 pneumococcal conjuga te vaccine, 7 valent [facility] Comment on above: Series: 03-28-2000 pneumococcal conjuga te vaccine, 7 valent Karen Nickerson [facility] Work Phone: Comment on above: Series: 01-25-2000 varicella virus vaccine [facility] Comment on above: Series: 12-20-1999 diphtheria, tetanus toxoids and acellular pertussis vaccine Karen Nickerson Work Phone: [facility] Work Phone: 12-20-1999 diphtheria, tetanus toxoids and pertussis vaccine Karen Nickerson [facility] Work Phone: Comment on above: Series: 12-20-1999 haemophilus influenz ae type b vaccine, PRP-OMP conjugate [facility] Phone: Comment on above: Series: 12-20-1999 poliovirus vaccine, inactivated [facility] Comment on above: Series: 12-10-1999 measles, mumps and rubella virus vaccine [facility] Comment on above: Series: 06-25-1999 diphtheria, tetanus toxoids and acellular pertussis vaccine Karen Nickerson Work Phone: [facility] Work Phone: 06-25-1999 diphtheria, tetanus toxoids and pertussis vaccine Karen Nickerson [facility] Work Phone: Comment on above: Series: 06-25-1999 hepatitis B vaccine, pediatric or pediatric/adolescent dosage [facility] Comment on above: Series: 06-25-1999 poliovirus vaccine, inactivated [facility] Comment on above: Series: 03-27-1999 diphtheria, tetanus toxoids and acellular pertussis vaccine Karen Nickerson Work Phone: [facility] Work Phone: 03-27-1999 diphtheria, tetanus toxoids and pertussis vaccine [facility] Work Phone: Comment on above: Series: 03-27-1999 haemophilus influenz ae type b vaccine, PRP-OMP conjugate Karen Nickerson [facility] Work Phone: Comment on above: Series: 01-23-1999 diphtheria, tetanus toxoids and acellular pertussis vaccine Karen Nickerson Work Phone: [facility] Work Phone: 01-23-1999 diphtheria, tetanus toxoids and pertussis vaccine Karen Nickerson [facility] Work Phone: Comment on above: Series: 01-23-1999 haemophilus influenz ae type b vaccine, PRP-OMP conjugate Karen Nickerson [facility] Work Phone: Comment on above: Series: 01-23-1999 poliovirus vaccine, inactivated [facility] Comment on above: Series: 1998 poliovirus vaccine, inactivated [facility] Comment on above: Series: 1998 hepatitis B vaccine, pediatric or pediatric/adolescent dosage [facility] Comment on above: Series: 1998 hepatitis B vaccine, pediatric or pediatric/adolescent dosage [facility] Comment on above: Series: Payers Date Payer Category Payer Dual Eligibility Medicare/Medicaid Organization [facility] DUAL COMPLETE Member Subscriber Plan / Payer (Effective 2024-Present) Name: Los Araiza Relation to Subscriber: Self Name: Los Araiza Payer ID: [id number] (NAIC) Group ID: [id number] Type: Not on file Address: [address] [address] [place] [address] [id number] 2024 Private Health Insurance [id number] 2015 Private Health Insurance [id number] 2008 Medicaid 2008 Private Health Insurance 2006 Medicaid [id number] 1998 Unknown [id number] 1998 Unknown [id number] 1998 Unknown [id number] .159 1998 Unknown [id number] .159 1998 Unknown [id number] .159 1998 Unknown [id number] .356 1998 Unknown [id number] .[id number] 1998 Unknown [id number] .356 1998 Unknown [id number] .356 1998 Unknown [id number] .[id number] 1998 Unknown [id number] .1242 1998 Unknown [id number] .1242 Unknown Social History Date Type Detail Facility Never a smoker Never a smoker [facility] Work Phone: Tobacco smoking status PAIS Tobacco smoking consumption unknown [facility] Work Phone: Start: 2000 Sex Assigned At Not on file [facility] Work Phone: Gender identity Not on file [facility] Work Phone: Start: 08-16-2023 End: 09-05-2023 Exposure to SARS-CoV-2 (event) Not sure [facility] NEGATED: Highlighted row - Never smoker [facility] Work Phone: Medical Equipment Procedure Code Equipment Code Equipment Origin al Text Equipment Identifier Dates Bone, Fibula, Shaft, 10 Cm X 14-18 Mm, Freeze-Dried, Aseptic Case [id number] Start: 12-08-2018 Comment on above: Description: Convert ed from [facility]. Please see archived information for full log information. Drill Bit Case [id number] Start: 12-08-2018 Comment on above: Description: Convert ed from [facility]. Please see archived information for full log information. Additional Information:per bill only jdr 12/24/2018 1218pm Bone, Mix Dbx 5m l, Aseptic Case [id number] Start: 12-08-2018 Comment on above: Description: Convert ed from [facility]. Please see archived information for full log information. Bone Chips, Cancell 30cc 1.7-10mm Case [id number] Start: 12-08-2018 Comment on above: Description: Convert ed from [facility]. Please see archived information for full log information. 4.0x 20 Multi- Axial Case [id number] Start: 12-08-2018 Comment on above: Description: Convert ed from [facility]. Please see archived information for full log information. Additional Information:per bill only jdr 12/24/2018 1218pm 4.5x 8mm Occipit al Screw Case [id number] Start: 12-08-2018 Comment on above: Description: Convert ed from [facility]. Please see archived information for full log information. Additional Information:per bill only jdr 12/24/2018 1218pm Set Screws Case [id number] Start: 12-08-2018 Comment on above: Description: Convert ed from [facility]. Please see archived information for full log information. Additional Information:per bill only jdr 12/24/2018 1218pm 3.5x 12 Favored Angle Case [id number] Start: 12-08-2018 Comment on above: Description: Convert ed from [facility]. Please see archived information for full log information. Additional Information:per bill only jdr 12/24/2018 1218pm 3.5x 10 Favored Angle Case [id number] Start: 12-08-2018 Comment on above: Description: Convert ed from [facility]. Please see archived information for full log information. Additional Information:per bill only jdr 12/24/2018 1218pm Drill Bit Case [id number] Start: 12-08-2018 Comment on above: Description: Convert ed from [facility]. Please see archived information for full log information. Acute Offset Connector Case [id number] Start: 12-08-2018 Comment on above: Description: Convert ed from [facility]. Please see archived information for full log information. Additional Information:per bill only jdr 12/24/2018 1217pm Adjustable Keel Plate Case [id number] Start: 12-08-2018 Comment on above: Description: Convert ed from [facility]. Please see archived information for full log information. Additional Information:per bill only jdr 12/24/2018 1218pm Vp2 Hinged Gilbert Case [id number] Start: 12-08-2018 Comment on above: Description: Convert ed from [facility]. Please see archived information for full log information. Additional Information:per bill only jdr 12/24/2018 1218pm 4.5x 6mm Occipit al Screw Case [id number] Start: 12-08-2018 Comment on above: Description: Convert ed from [facility]. Please see archived information for full log information. Additional Information:per bill only jdr 12/24/2018 1218pm Functional Status Date Assessment Result Facility NEGATED: Highlighted row Functional performance Functional status health issues are not documented Disease [facility] Work Phone: Mental Status Date Assessment Result Facility NEGATED: Highlighted row Cognitive function [Interpretation] Cognitive status health issues are not documented Disease [facility] Work Phone: Clinical Notes 12-04-2018 to 09-03-2024 Alvino Dick MD - 09/03/2024 10:00 AM EDTPatient InstructionsAlvino Dick MD - 09/05/2023 11:00 AM EDTPatient Instructions Note Date & Type Note Facility 09-03-2024 History of Present illness Narrative Patient Name: Los Araiza Provider: Alvino Dick MD : 2000 Date of Service: 09/03/2024 Referring: No ref. provider found DIAGNOSES: 1. Tetralogy of Fallot/Complete AVSD - 06/01/1999: complete surgical repair of Tetralogy of Fallot and complete AV canal with patch closure of ASD, VSD, and an RV infundibular patch (Dr. Lopes, [facility] in [place]). - TTE 08/31/2021 Moderate to severe PI, mild PS, mild left AVV regurgitation, normal Biventricular function - TTE 08/24/2020: Cleft AVV-LT with mild regurgitation, mild WA, no residual shunt, normal Biventricular size and function - Echo 09/06/2022: Mild Left and Right AVV regurgitation, normal LV/RV size and function, Moderate to Severe PI PHT 100-110 ms (unchanged) - TTE 09/05/23: No residual VSD, No PS, Moderate PI PHT ~ 140 ms 2. AVSD, s/p repair - TTE 08/31/2021 Mild Left AVV regurgitation - Echo 09/06/2022 Mild left and right AVV regurgitation -TTE 09/05/23: Mild Left and trivial Right AVV regurgitation, normal LV/RV size 3. 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 She is a 23 yo with the above diagnoses. She was last seen in [facility] clinic 09/2023. Los was diagnosed with tetralogy of Fallot with complete AV septal defect at for which she underwent complete surgical repair during infancy. Since 2001 she was followed by our Pediatric Cardiology group @ [facility] (Drs. Mena, Ainsley, Shana, Joshua, Marion) on an annual basis with no active cardiac issues. She was hospitalized in 2018 for syncopal episodes with associated seizure activity. Neurology evaluation was normal. The syncopal episodes were felt to be likely vasovagal which improved over time with hydration & salt intake. She established care with [facility] team and was seen by Dr. Schultz in November 2018, prior to her occipital cervical fusion surgery by Dr. Carrington on December 08, 2018. At 2021 visit, mom voiced concern for daytime sleepiness. She says Los takes frequent short daytime naps. She goes to bed between 10-11 pm and wakes up around 7 am. Mom says patient snores softly at night and had never had a formal sleep study. 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 We referred to sleep medicine. She was seen by Dr. Grove on 09/17/22 and a sleep study was ordered. She did not have sleep disordered breathing. Lowest O2 sat 92%. At last visit she was doing well without concerns. Today she is accompanied by her mother and father. She reports that since her last visit she has overall been doing well. Parents note that Los has continued to have daytime sleepiness, including while riding in the car or while at home during the day. This occurs despite Los sleeping well for about 9 hours each night. She does not snore loudly, and has had a normal sleep study. In addition, Los will be seeing GI for bowel incontinence in the setting of an impaction for which she takes miralax. She is otherwise recovering for a recent URI and is feeling better, though still has a lingering cough. From a cardiac perspective, Los and her parents do not have any specific concerns. She denies any chest pain, palpitations, SOB with activity or at rest, syncope, or near syncope. Los had a Holter placed previously for 2 episodes of a fluttering sensation. Holter findings were unremarkable and she has not had any further episodes of feeling as though her heart was fluttering. She actively participates in [employer] and keeps up with her peers well. 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 Unknown when last TSH checked. Arrhythmia Hx: None. Heart Failure Hx: None. PMHx: - Hypothyroidism. - Bilateral hearing loss. - Anxiety (follows with Dr Centeno and Dr Smith). - Atlantoaxial instability-s/p repair. PSHx: - Cleft palate repair. (03/2018) - Lingual tonsillectomy. (10/2015) - Dental extractions. (08/2012) - Occipito cervical fusion surgery (03/04/2019) Family Hx: Adopted. Unknown hx on biological mother. Biological father had stroke in 40s. Social Hx: Adopted. Lives with parents. 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 Denies smoking, alcohol abuse, and recreational drug abuse. 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 ROS: General: no fatigue, no fever, no weight loss, no excessive sweating, no decreased appetite HEENT: no facial swelling, no hoarseness, no eye redness, no eye lid swelling Cardiac: no fainting, no cyanosis, no chest pain, no palpitations Respiratory: no shortness of breath, no coughing blood, no noisy breathing, no wheezing, no cough GI: No abdomen pain, no constipation, no diarrhea, no vomiting, +incontinence Musculoskeletal: no extremity swelling Skin: no paleness, no rash, no yellow skin Hematologic: no easy bruising, no easy bleeding Neurologic: no seizures, no weakness All systems negative unless otherwise stated. CURRENT MEDS: Current Outpatient Medications: levothyroxine (Synthroid, Levoxyl) 112 mcg tablet, Take 1 tablet (112 mcg) by mouth once daily., Disp: , Rfl: norethindrone-ethin estradioL (Dasetta , ,) 1-35 mg-mcg tablet, Take by mouth., Disp: , Rfl: sertraline (Zoloft) 50 mg tablet, Take by mouth., Disp: , Rfl: PHYSICAL EXAM: BP 151/75 (BP Location: Left arm) Pulse 69 Ht 1.651 m (5' 5 ) Wt 47.2 kg (104 lb 1.6 oz) SpO2 99% BMI 17.32 kg/m Body mass index is 17.32 kg/m . General: Well appearing and in no distress HEENT: Moist mucous membranes Neck: Supple, JVP normal, Carotid upstrokes brisk bilaterally and without bruits Respiratory: Clear to ausculation bilaterally; no wheezing/rales/rhonchi; respirations non-labored Cardiovascular: Well healed sternotomy scar. RRR, normal PMI, normal S1 and S2. No S3 or S4. Grade II/ systolic murmur LMSB. Gastrointestinal: Well healed transverse scar and G-tube incision site. Soft, non-tender, no organomegaly, no abnormal aortic pulsation Extremities: warm and well perfused with no cyanosis, clubbing, or edema Neurologic: awake/alert, no focal deficits DATA: TTE 09/03/24 personally reviewed by me in clinic today: Normal LV and RV size and function Mild LAVV regurgitation Mean LAVV inflow gradient 4 mmHg Mod PI PHT 114 ms Mild PS 17mmHg TTE 09/05/2023; personally reviewed by me in clinic today: - TOF/AVSD s/p repair - No residual VSD - No PS - Moderate, PI PHT ~ 140 ms - Mild Left and trivial Right AVV regurgitation - mean LAVV gradient 4 mm Hg - No LVOT obstruction - Normal LV size and systolic function - Normal RV size and systolic function - Ventricular ectopy Echo 09/06/2022 images reviewed and interpreted by Alvino Dick MD TOF/AVSD Normal LV size and function Mild Left AVV regurgitation Goose neck deformity LVOT without obstruction Moderate to severe WA PHT 100-110 ms, by color, no change from last year 2020 Normal RV size and function Mild Right AVV regurgitation Echo 08/31/2021: Images reviewed and interpreted by Alvino Dick MD Normal LV and RV size and function Mild MR, with posteriorly directed jet Moderate to sever WA, pressure halftime 110 ms (unchanged from previous ECHO) Mild PS pk gradient 19 mmHg (unchanged) ECG 08/31/2021: NSR Rate 64 bpm QRS 102 ms SADIQ 156 ms ECG: - 08/24/20: Sinus bradycardia @ HR 50 bpm, LAD, WA interval (148 ms), QRS duration (96 ms) (unchanged from before). Echocardiogram: - 07/08/2019: Residual anterior cleft left AV valve with mild regurgitation. Moderate WA. No residual intracardiac shunting. No RVOT/LVOT obstruction. Normal biventricular size and systolic function. - 12/01/2018: Mild left AV valve regurgitation through a residual cleft and no stenosis. Mild WA. No residual intracardiac shunting. No RVOT/LVOT obstruction. Normal biventricular size and systolic function. - 12/19/2017: Mild left AV valve regurgitation through a residual cleft and no stenosis. Trivial right AV valve regurgitation. Mild WA. No residual intracardiac shunting. No RVOT or LVOT obstruction. Normal biventricular size and systolic function. - 10/07/2016: Mild left AV valve regurgitation through a residual cleft and no stenosis. Trivial right AV valve regurgitation. No residual intracardiac shunting. No RVOT or LVOT obstruction. Normal biventricular size and systolic function. - 2015: Mild left AV valve regurgitation through a residual cleft and no stenosis. Trivial right AV valve regurgitation. No left and no right AV valve stenosis. No residual intracardiac shunting. No RVOT or LVOT obstruction. Normal biventricular size and systolic function. Cardiac MRI: - 07/19/20: No significant residual RVOT obstruction. Mild PV regurgitation with the regurgitant fraction of 13%. No evidence of residual intracardiac shunt. No significant right AV valve regurgitation. Mild left AV valve regurgitation with a calculated regurgitant fraction of 28%. Mildly dilated RV (RVEDVi 108 ml/m2) without hypertrophy with normal systolic function (RVEF 50%). Normal LV size and systolic function. No pericardial effusion. - 02/26/2017: Moderate left AV valve regurgitation with a regurgitant fraction of 28%. Mild right AV valve regurgitation with a regurgitant fraction of 11%. Aneurysmal and dyskinetic RVOT. Mild pulmonary valve insufficiency with a regurgitant fraction of 15%. There is tethering of the pulmonary valve leaflets to the supravalvar area and the peak instantaneous gradient across the pulmonary valve is 15 mmHg. No residual atrial or ventricular level shunting. Qp/Qs is 1.0. No left ventricular outflow tract obstruction. Normal RV size and systolic function (RVEDVi = 90 ml/m2, RVEF 54%). Normal LV size and systolic function (LVEDVi = 92 ml/m2, LVEF 55%). - 06/07/2015: Mild left AV valve regurgitation with a regurgitant fraction of 17%. Mild right AV valve regurgitation. No left and right AV valve stenosis. Aneurysmal patch RVOT, dyskinetic motion. Mild pulmonary valve insufficiency with a regurgitant fraction of 6%. No residual atrial or ventricular level shunting. Normal RV volume and systolic function (RVEDVi = 79 ml/m2, RVEF 59%). Normal LV volume and systolic function (LVEDVi 78.2 ml/m2, LVEF 64%). Mild aortic regurgitation with a regurgitation fraction of 4%. - 10/07/2012: Moderate left AV valve regurgitation with a regurgitant fraction of 26%. Mild right AV valve regurgitation with a regurgitant fraction of 14%. No left and right AV valve stenosis. Mild pulmonary valve insufficiency with a regurgitant fraction of 6%. No residual atrial or ventricular level shunting. Normal RV volume and systolic function (RVEDV index = 81 ml/m2, RVEF 57%. Normal LV volumes and systolic function (LVEDVI = 80 ml/m2, LVEF 58%). 7-day Zio: Predominantly normal sinus rhythm with IVCD throughout. Rare isolated PAC. Rare isolated PVCs, with some presenting in a pattern of bigeminy. Patient event markers (total 15) and dairy symptoms correlated with sinus rhythm. CPET: - 03/12/2017: Exercised on the cycle Ergometer using the 5 watt ramp protocol. Test terminated due to general fatigue, no chest pain. Average exercise capacity based on a peak relative VO2 of 34 mL/kg/min (83% predicted) and peak absolute VO2 of 1.318 l/min (90% predicted). Average endurance time and average peak VO2 associated with normal GET. Normal stroke volume response to exercise. Normal O2 pulse measurement at 7.29 ml/beat (122% predicted). No abnormal findings on ECG during exercise. Two interpolated PVCs during recovery. WBC Date Value Ref Range Status 12/07/2018 3.7 (L) 4.4 - 11.3 x10E9/L Final Hemoglobin Date Value Ref Range Status 12/07/2018 14.1 12.0 - 16.0 g/dL Final MCV Date Value Ref Range Status 12/07/2018 101 (H) 80 - 100 fL Final Creatinine Date Value Ref Range Status 12/25/2018 0.93 0.50 - 1.05 mg/dL Final 12/07/2018 0.98 0.50 - 1.05 mg/dL Final No components found for: MAGNESIUM Total Protein Date Value Ref Range Status 12/25/2018 8.1 6.4 - 8.2 g/dL Final Albumin Date Value Ref Range Status 12/25/2018 4.4 3.4 - 5.0 g/dL Final ALT (SGPT) Date Value Ref Range Status 12/25/2018 43 7 - 45 U/L Final Comment: Patients treated with Sulfasalazine may generate falsely decreased results for ALT. AST Date Value Ref Range Status 12/25/2018 21 9 - 39 U/L Final INR Date Value Ref Range Status 12/07/2018 1.0 0.9 - 1.1 Final aPTT Date Value Ref Range Status 12/07/2018 31 28 - 38 sec Final Comment: THE APTT IS NO LONGER USED FOR MONITORING UNFRACTIONATED HEPARIN THERAPY. FOR MONITORING HEPARIN THERAPY, USE THE HEPARIN ASSAY. ASSESSMENT & PLAN: Los is a 23y F with Trisomy 21 and CHD Hx of tetralogy of Fallot with complete AV septal defect status post complete repair. She remains asymptomatic from cardiology perspective. Euvolemic on examination. 1. TOF s/p repair - CMRI 2019: mild dilation of RV (RVEDVi 108 ml/m2) Echo today is consistent from previous echo: mild LAVV regurgitation, mean inflow of 4 mmHg, moderate PI (PHT 114 ms), mild PS (17 mmHg) - Currently she does not meet the indication for PVR - Will continue to follow with serial ECHOs annually 2. AVSD s/p repair Echo today shows mild left AVV regurgitation with mean inflow of 4mmHg. No LVOT obstruction. - Will continue to monitor for progression of AVV regurgitation with serial ECHOs. - SBE prophylaxis is indicated given surgical stitch in LAVV 3. Fatigue Negative sleep study. Still with some daytime sleepiness. Recommend TSH if none recently 4. Asymptomatic PVC Normal Holter monitoring results She is asymptomatic with normal LV function. Will continue monitoring for now. Patient was seen and discussed with Dr. Dick. Please see attending attestation for further information. Hung Nicholson Pediatric Systems Technologist, PGY5 I saw and evaluated the patient. I personally obtained the castellon and critical portions of the history and physical exam or was physically present for castellon and critical portions performed by the resident/fellow. I reviewed the resident/fellow's documentation and discussed the patient with the resident/fellow. I agree with the resident/fellow's medical decision making as documented in the note. Alvino Dick MD Thank you for allowing me to participate in the care of this patient. Please don't hesitate to contact us with any questions or concerns. Sincerely, Alvino Dick MD, MSc Director, Adult Congenital Heart Disease Program [facility] [place] documented in this encounter [facility] Work Phone: 09-03-2024 Instructions Liliana Blanco RN - 09/03/2024 10:00 AM EDT Your echo today is stable from last year. No significant change. Next visit one year with echo. Follow up with: Dr. Lucero Date: 09/15/25 Time: Echo & EK:00 Appointment: 11:00 If you receive any automated reminders from stating a different appointment time, please disregard. Location: [facility], [facility] - [address], [place], [address] Endocarditis prophylaxis: You need antibiotics before dental cleanings and procedures. Call us if you need a prescription sent to your pharmacy. Please see the dentist every 6 months for a teeth cleaning. Other: No other special instructions [facility] program contact information: [facility] Nurse line: [phone] [facility] Coordinator: [phone] (scheduling) After hours: call [phone] [place] [phone] Email: [email or web address] Nurse Department [facility] Cyndi If your pharmacy has any problems requesting refills from us for your cardiac medications, please contact us. documented in this encounter [facility] Work Phone: 09-05-2023 History of Present illness Narrative Patient Name: Los Araiza Provider: Alvino Dick MD : 2000 Date of Service: 09/05/2023 Referring: Mayelin DIAGNOSES: 1. Tetralogy of Fallot/Complete AVSD - 06/01/1999: complete surgical repair of Tetralogy of Fallot and complete AV canal with patch closure of ASD, VSD, and an RV infundibular patch (Dr. Lopes, [facility] in [place]). - TTE 08/31/2021 Moderate to severe PI, mild PS, mild left AVV regurgitation, normal Biventricular function - TTE 08/24/2020: Cleft AVV-LT with mild regurgitation, mild WA, no residual shunt, normal Biventricular size and function - Echo 09/06/2022: Mild Left and Right AVV regurgitation, normal LV/RV size and function, Moderate to Severe PI PHT 100-110 ms (unchanged) - TTE 09/05/23: No residual VSD, No PS, Moderate PI PHT ~ 140 ms 2. AVSD, s/p repair - TTE 08/31/2021 Mild Left AVV regurgitation - Echo 09/06/2022 Mild left and right AVV regurgitation -TTE 09/05/23: Mild Left and trivial Right AVV regurgitation, normal LV/RV size 3. Pulmonary valve insufficiency - TTE 08/31/2021 Moderate to severe WA (unchanged from previous ECHO 2018) - Echo 09/06/2022 Moderate to severe PI, PHT 100-110 ms, unchanged from 2020 - TTE 09/05/23: Mild Left and trivial Right AVV regurgitation, normal LV/RV size 4. 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 Terry Robin saw Los Araiza today in the Center for Adults with Congenital Heart Disease, [facility] [place] at [facility]. She is a 22 yo with the above diagnoses. She was last seen in [facility] clinic 09/24. Los was diagnosed with tetralogy of Fallot with complete AV septal defect at for which she underwent complete surgical repair during infancy. Since 2001 she was followed by our Pediatric Cardiology group @ [facility] (Ainsley Rai, Shana, Joshua, Marion) on an annual basis with no active cardiac issues. She was hospitalized in 2018 for syncopal episodes with associated seizure activity. Neurology evaluation was normal. The syncopal episodes were felt to be likely vasovagal which improved over time with hydration & salt intake. She established care with [facility] team and was seen by Dr. Schultz in November 2018, prior to her occipital cervical fusion surgery by Dr. Carrington on December 08, 2018. At last visit 09/06/22, mom voiced concern for daytime sleepiness. She says Los takes frequent short daytime naps. She goes to bed between 10-11 pm and wakes up around 7 am. Mom says patient snores softly at night and had never had a formal sleep study. 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 We referred to sleep medicine. She was seen by Dr. Grove on 09/17/22 and a sleep study was ordered. She did not have sleep disordered breathing. Lowest O2 sat 92%. 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 She has become more sedentary. Interval History: Today she and mother reports that Los has been doing well. She is active and no limitations of her daily activities. Per her mother, she has no symptoms of chest pain/palpitations/PARIKH/cyanosis/d ecline in energy levels/near syncope/syncope/pedal edema/orthopnea/paroxysmal nocturnal dyspnea She follows with PCP for management of hypothyroid. Her Levothyroxine dose has been increased since last visit. Her last TSH was drawn on 05/15/2022 and was 4.8, T4 1.12. Arrhythmia Hx: None. Heart Failure Hx: None. PMHx: - Hypothyroidism. - Bilateral hearing loss. - Anxiety (follows with Dr Centeno and Dr Smith). - Atlantoaxial instability-s/p repair. PSHx: - Cleft palate repair. (03/2018) - Lingual tonsillectomy. (10/2015) - Dental extractions. (08/2012) - Occipito cervical fusion surgery (03/04/2019) Family Hx: Adopted. Unknown hx on biological mother. Biological father had stroke in 40s. Social Hx: Adopted. Lives with parents. 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 Denies smoking, alcohol abuse, and recreational drug abuse. Employed by local [employer]. ROS: General: no fatigue, no fever, no weight loss, no excessive sweating, no decreased appetite HEENT: no facial swelling, no hoarseness, no eye redness, no eye lid swelling Cardiac: no fainting, no cyanosis, no chest pain, no palpitations Respiratory: no shortness of breath, no coughing blood, no noisy breathing, no wheezing, no cough GI: No abdomen pain, no constipation, no diarrhea, no vomiting Musculoskeletal: no extremity swelling Skin: no paleness, no rash, no yellow skin Hematologic: no easy bruising, no easy bleeding Neurologic: no seizures, no weakness All systems negative unless otherwise stated. CURRENT MEDS: Current Outpatient Medications: levothyroxine (Synthroid, Levoxyl) 112 mcg tablet, Take 1 tablet (112 mcg) by mouth once daily., Disp: , Rfl: norethindrone-ethin estradioL (Dasetta , ,) 1-35 mg-mcg tablet, Take by mouth., Disp: , Rfl: sertraline (Zoloft) 50 mg tablet, Take by mouth., Disp: , Rfl: PHYSICAL EXAM: BP (!) 100/48 (BP Location: Left arm, Patient Position: Sitting, BP Cuff Size: Adult) Pulse 62 Wt 45.3 kg (99 lb 14.4 oz) SpO2 98% BMI 21.62 kg/m Body mass index is 21.62 kg/m . General: Well appearing and in no distress HEENT: Moist mucous membranes Neck: Supple, JVP normal, Carotid upstrokes brisk bilaterally and without bruits Respiratory: Clear to ausculation bilaterally; no wheezing/rales/rhonchi; respirations non-labored Cardiovascular: Well healed sternotomy scar. RRR, normal PMI, normal S1 and S2. No S3 or S4. Grade II/IV diastolic murmur LMSB. Grade 2/6 holosystolic murmur at the apex. Gastrointestinal: Well healed transverse scar and G-tube incision site. Soft, non-tender, no organomegaly, no abnormal aortic pulsation Extremities: warm and well perfused with no cyanosis, clubbing, or edema Neurologic: awake/alert, no focal deficits DATA: TTE 09/05/2023; personally reviewed by me in clinic today: - TOF/AVSD s/p repair - No residual VSD - No PS - Moderate, PI PHT ~ 140 ms - Mild Left and trivial Right AVV regurgitation - mean LAVV gradient 4 mm Hg - No LVOT obstruction - Normal LV size and systolic function - Normal RV size and systolic function - Ventricular ectopy Echo 09/06/2022 images reviewed and interpreted by Alvino Dick MD TOF/AVSD Normal LV size and function Mild Left AVV regurgitation Goose neck deformity LVOT without obstruction Moderate to severe WA PHT 100-110 ms, by color, no change from last 2020 Normal RV size and function Mild Right AVV regurgitation Echo 08/31/2021: Images reviewed and interpreted by Alvino Dick MD Normal LV and RV size and function Mild MR, with posteriorly directed jet Moderate to sever WA, pressure halftime 110 ms (unchanged from previous ECHO) Mild PS pk gradient 19 mmHg (unchanged) ECG 08/31/2021: NSR Rate 64 bpm QRS 102 ms SADIQ 156 ms ECG: - 08/24/20: Sinus bradycardia @ HR 50 bpm, LAD, WA interval (148 ms), QRS duration (96 ms) (unchanged from before). Echocardiogram: - 07/08/2019: Residual anterior cleft left AV valve with mild regurgitation. Moderate WA. No residual intracardiac shunting. No RVOT/LVOT obstruction. Normal biventricular size and systolic function. - 12/01/2018: Mild left AV valve regurgitation through a residual cleft and no stenosis. Mild WA. No residual intracardiac shunting. No RVOT/LVOT obstruction. Normal biventricular size and systolic function. - 12/19/2017: Mild left AV valve regurgitation through a residual cleft and no stenosis. Trivial right AV valve regurgitation. Mild WA. No residual intracardiac shunting. No RVOT or LVOT obstruction. Normal biventricular size and systolic function. - 10/07/2016: Mild left AV valve regurgitation through a residual cleft and no stenosis. Trivial right AV valve regurgitation. No residual intracardiac shunting. No RVOT or LVOT obstruction. Normal biventricular size and systolic function. - 2015: Mild left AV valve regurgitation through a residual cleft and no stenosis. Trivial right AV valve regurgitation. No left and no right AV valve stenosis. No residual intracardiac shunting. No RVOT or LVOT obstruction. Normal biventricular size and systolic function. Cardiac MRI: - 07/19/20: No significant residual RVOT obstruction. Mild PV regurgitation with the regurgitant fraction of 13%. No evidence of residual intracardiac shunt. No significant right AV valve regurgitation. Mild left AV valve regurgitation with a calculated regurgitant fraction of 28%. Mildly dilated RV (RVEDVi 108 ml/m2) without hypertrophy with normal systolic function (RVEF 50%). Normal LV size and systolic function. No pericardial effusion. - 02/26/2017: Moderate left AV valve regurgitation with a regurgitant fraction of 28%. Mild right AV valve regurgitation with a regurgitant fraction of 11%. Aneurysmal and dyskinetic RVOT. Mild pulmonary valve insufficiency with a regurgitant fraction of 15%. There is tethering of the pulmonary valve leaflets to the supravalvar area and the peak instantaneous gradient across the pulmonary valve is 15 mmHg. No residual atrial or ventricular level shunting. Qp/Qs is 1.0. No left ventricular outflow tract obstruction. Normal RV size and systolic function (RVEDVi = 90 ml/m2, RVEF 54%). Normal LV size and systolic function (LVEDVi = 92 ml/m2, LVEF 55%). - 06/07/2015: Mild left AV valve regurgitation with a regurgitant fraction of 17%. Mild right AV valve regurgitation. No left and right AV valve stenosis. Aneurysmal patch RVOT, dyskinetic motion. Mild pulmonary valve insufficiency with a regurgitant fraction of 6%. No residual atrial or ventricular level shunting. Normal RV volume and systolic function (RVEDVi = 79 ml/m2, RVEF 59%). Normal LV volume and systolic function (LVEDVi 78.2 ml/m2, LVEF 64%). Mild aortic regurgitation with a regurgitation fraction of 4%. - 10/07/2012: Moderate left AV valve regurgitation with a regurgitant fraction of 26%. Mild right AV valve regurgitation with a regurgitant fraction of 14%. No left and right AV valve stenosis. Mild pulmonary valve insufficiency with a regurgitant fraction of 6%. No residual atrial or ventricular level shunting. Normal RV volume and systolic function (RVEDV index = 81 ml/m2, RVEF 57%. Normal LV volumes and systolic function (LVEDVI = 80 ml/m2, LVEF 58%). 7-day Zio: Predominantly normal sinus rhythm with IVCD throughout. Rare isolated PAC. Rare isolated PVCs, with some presenting in a pattern of bigeminy. Patient event markers (total 15) and dairy symptoms correlated with sinus rhythm. CPET: - 03/12/2017: Exercised on the cycle Ergometer using the 5 watt ramp protocol. Test terminated due to general fatigue, no chest pain. Average exercise capacity based on a peak relative VO2 of 34 mL/kg/min (83% predicted) and peak absolute VO2 of 1.318 l/min (90% predicted). Average endurance time and average peak VO2 associated with normal GET. Normal stroke volume response to exercise. Normal O2 pulse measurement at 7.29 ml/beat (122% predicted). No abnormal findings on ECG during exercise. Two interpolated PVCs during recovery. WBC Date Value Ref Range Status 12/07/2018 3.7 (L) 4.4 - 11.3 x10E9/L Final Hemoglobin Date Value Ref Range Status 12/07/2018 14.1 12.0 - 16.0 g/dL Final MCV Date Value Ref Range Status 12/07/2018 101 (H) 80 - 100 fL Final Creatinine Date Value Ref Range Status 12/25/2018 0.93 0.50 - 1.05 mg/dL Final 12/07/2018 0.98 0.50 - 1.05 mg/dL Final No components found for: MAGNESIUM Total Protein Date Value Ref Range Status 12/25/2018 8.1 6.4 - 8.2 g/dL Final Albumin Date Value Ref Range Status 12/25/2018 4.4 3.4 - 5.0 g/dL Final ALT (SGPT) Date Value Ref Range Status 12/25/2018 43 7 - 45 U/L Final Comment: Patients treated with Sulfasalazine may generate falsely decreased results for ALT. AST Date Value Ref Range Status 12/25/2018 21 9 - 39 U/L Final INR Date Value Ref Range Status 12/07/2018 1.0 0.9 - 1.1 Final aPTT Date Value Ref Range Status 12/07/2018 31 28 - 38 sec Final Comment: THE APTT IS NO LONGER USED FOR MONITORING UNFRACTIONATED HEPARIN THERAPY. FOR MONITORING HEPARIN THERAPY, USE THE HEPARIN ASSAY. 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 She remains asymptomatic from cardiology perspective. Euvolemic on examination. 1. TOF s/p repair - CMRI 2020: mild dilation of RV (RVEDVi 108 ml/m2) Echo today shows no residual VSD, no PS, moderate PI, P 1/2 t roughly 140 on different specter dopplers. - Currently she does not meet the indication for PVR - Will continue to follow with serial ECHOs annually 2. AVSD s/p repair Echo today shows mild left and right AVV regurgitation without stenosis. No LVOT obstruction. - Will continue to monitor for progression of AVV regurgitation with serial ECHOs. - SBE prophylaxis is indicated given surgical stitch in LAVV 3. Fatigue- resolved Negative sleep study. Sleep hygiene 4. Asymptomatic PVC Frequent PVC's seen on today echocardiogram. She is asymptomatic with normal LV functio. Will continue monitoring for now. Patient was seen and examined with the attending cardiologists Dr. aMyelin Hugo MD Pediatric cardiology- PGY 6 I saw and evaluated the patient. I personally obtained the castellon and critical portions of the history and physical exam or was physically present for castellon and critical portions performed by the resident/fellow. I reviewed the resident/fellow's documentation and discussed the patient with the resident/fellow. I agree with the resident/fellow's medical decision making as documented in the note. Alvino Dick MD Thank you for allowing me to participate in the care of this patient. Please don't hesitate to contact us with any questions or concerns. Sincerely, Alvino Dick MD, MSc Director, Adult Congenital Heart Disease Program [facility] [place] documented in this encounter [facility] Work Phone: 09-05-2023 Instructions Alvino Dick MD - 09/05/2023 11:00 AM EDT Your echo today has no changes from last year and no concerns today. Next visit one year with echo. You should take antibiotics for the dentist - there is a surgical stitch in you left AV valve that poses a risk 0 this is not covered in the guidelines. Follow up with: Alvino Dick MD Date: 09/03/24 Time: Echo: 9 Appointment: 10 Location: [facility] [place] - [address] [place] [address] Recommendations: Endocarditis prophylaxis: You need antibiotics before dental cleanings and procedures. Call us if you need a prescription sent to your pharmacy. Please see the dentist every 6 months for a teeth cleaning. Other: [facility] program contact information: [facility] Nurse line: [phone] [facility] Coordinator: [phone] (scheduling) After hours: call [phone] [place] [phone] Email: [email or web address] MyChart Cyndi If your pharmacy has any problems requesting refills from us for your cardiac medications, please contact us. Please notif documented in this encounter [facility] Work Phone: 10-09-2022 History of Present illness Narrative Patient along with her mother were seen today in the office on a follow-up to review her sleep study that was done on 10/09/2022. These results showed that the patient had a RDI 4% of 1.4. Her low oxygen saturation during the night study was 92%. There is no snoring noted on the night study. All the results of the testing were reviewed with the mother. There was a notation from the night tach that there was 1 bigeminy noted on the telemetry when the biocals were being done. [facility] Work Phone: 04-10-2022 History of Present illness Narrative Initial Fall Risk Screening:LOS has not fallen in the last 6 months. Her fall did not result in injury. LOS does not have a fear of falling. She does not need assistance with sitting, standing or walking. Does not need assistance walking in her home. She does not need assistance in an unfamiliar setting. The patient is not using an assistive device. [facility] Work Phone: 12-31-2020 Note Patient Outreach ([place] [facility]) LOS ARAIZA ([id number]) 2000 F Date Time Provider Department 12/31/20 LEIGHA STINSON During your visit today, we recorded the following information about you: Allergies As of Date: 12/31/2020 Noted Allergy Reaction SULFA (SULFONAMIDE ANTIBIOTICS) 05/13/2007 Date Reviewed: 11/25/2019 Reviewed by: Kayla Madera - Fully Assessed Order(s):SARS-COVID VACCINE 1ST DOSE APPT [[id number]] Order #: [id number] FUTURE Prescriptions as of 12/31/2020 Sig: ZOLOFT ORAL Take 1 tablet by mouth once d* PIRMELLA 1 MG-35 MCG TABLET Take 1 tablet by mouth once d* PROBIOTIC ORAL Take by mouth. TOPIRAMATE 15 MG SPRINKLE CAP* take 2 capsules by mouth ever* CYMBALTA ORAL Take 15 mg by mouth once whit* LEVOTHYROXINE 137 MCG TABLET WESTCORT 0.2 % TOPICAL OINTME* apply to the rash one or two * TRIAMCINOLONE ACETONIDE 0.1 %* Apply to affected area BID Patient not taking: FOR EXTERNAL USE ONLY. Apply* ORAPRED ODT 15 MG DISINTEGRAT* TRIMETHOPRIM 50 MG/5 ML ORAL * PREVACID 15 MG CAPSULE,DELAYE* Take one(1) capsule daily. Problem List As Of Date 12/31/2020 Noted Resolved FEEDING PROBLEM [R63.3] 05/13/2007 Feeding Disorder of Infancy and Gold Leaf Printer*05/13/2007 Lack of expected normal physiological developme*05/30/2015 Down syndrome, unspecified [Q90.9] 05/30/2015 Dysmenorrhea [N94.6] 10/30/2018 Encounter Status:Closed by [employer], PRODUSER on 01/03/21 [facility] 12-04-2018 History of Present illness Narrative I had the pleasure of seeing Los in clinic today for routine routine follow uo. As you know, she is a 19-year-old with history of Down syndrome, who had atlantoaxial instability with erosion of the right C1-2 joint, who underwent occipitocervical fusion in December 2018. Since our last visit 1 year ago she has been doing well. No complaints of headache or neck pain. She sometimes has a hard time looking at objects she is holding if she doesn t hold them far enough in front of her. Otherwise she is doing well and her mom is very pleased with how she is doing.I have completed a full 12 point review of systems, all of which are negative, except what is presented in the HPI, on the scanned intake form, or stated below. -[facility] Work Phone: Chief complaint Narrative - Reported LOS ARAIZA is here for an initial evaluation and here with mother, Trung.Reason for Visit: Eval for Sleep Apnea.Appointment requested by: Dr. Dick; PCP: Dr. Bianchi. -Pulmonary Medicine-[address] Work Phone: Evaluation note Diagnosis Tetralogy of Fallot documented in this encounter [facility] Work Phone: Evaluation note* Diagnosis Tetralogy of Fallot- Primary Complete common atrioventricular canal Nonrheumatic pulmonary valve insufficiency Residual left AV valve insufficiency documented in this encounter [facility] Work Phone: Evaluation note* Diagnosis Tetralogy of Fallot documented in this encounter [facility] Work Phone: Evaluation note* Diagnosis Tetralogy of Fallot (HHS-HCC)- Primary Tetralogy of Fallot Complete common atrioventricular canal (HHS-HCC) Down syndrome Down's syndrome documented in this encounter [facility] Work Phone: History of Present illness Narrative* INTERVAL HISTORY: * Dear * I saw Los Araiza today in the [facility] for Adults with Congenital Heart Disease at [facility]. * Los was diagnosed with congenital heart disease (tetralogy of Fallot with complete AV canal defect) at for which she underwent complete surgical repair during infancy. Since 2001 he was followed by our Pediatric Cardiology group @ [facility] (Drs. Mena, Ainsley, Shana, and Joshua) on an annual bases with no active cardiac issues. Last clinic visit was with Dr. Lewis in 05/2018. As she turned adult, her subsequent care was transitioned to [facility] program. * She was hospitalized in 2018 for syncopal episodes with associated seizure activity. Neurology evaluation was normal. The syncopal episodes were felt to be likely vasovagal which improved overtime with hydration & salt intake. She established care with [facility] team and was seen by Dr. Schultz in November 2018, prior to her occipital cervical fusion surgery by Dr. Carrington on December 08, 2018. * Ms. Peraza was seen in clinic as scheduled visit. Since her last visit, she remained well from cardiac stand point. 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 She has many friends with her neighbors children, but is less active now. * She follows with PCP for management of hypothyroid. Her Levothyroxine dose has been increased sincelast visit. * Arrhythmia Hx: None. * Heart Failure Hx: None. * PMHx: * - Hypothyroidism. * - Bilateral hearing loss. * - Anxiety (follows with Dr Centeno and Dr Smith). * - Atlantoaxial instability-s/p repair. * PSHx: * - Cleft palate repair. (03/2018) * - Lingual tonsillectomy. (10/2015) * - Dental extractions. (08/2012) * -Occipito cervical fusion surgery (03/04/2019) * Family Hx: Adopted. Unknown hx on biological mother. Biological father had stroke in 40s. * Social Hx: Adopted. Lives with parents. 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 Denies smoking, alcohol abuse, and recreational drug abuse. Employed by [employer]. * Current Medications: * - Dasertta (OCP). * - Levoxyl 88 mcg once daily. * - Ibuprofen PRN * - Probiotic * Allergy: Sulfa drugs. [facility] Work Phone: History of Present illness Narrative* INTERVAL HISTORY: * Dear * I saw Los Araiza today in the [facility] at [facility]. 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 Since 2001 she was followed by our Pediatric Cardiology group @ [facility] (Ainsley Rai, Shana, Joshua, Marion) on an annual basis with no active cardiac issues. * She was hospitalized in 2018 for syncopal episodes with associated seizure activity. Neurology evaluation was normal. The syncopal episodes were felt to be likely vasovagal which improved overtime with hydration & salt intake. She established care with [facility] team and was seen by Dr. Schultz in November 2018, prior to her occipital cervical fusion surgery by Dr. Carrington on December 08, 2018. * Ms. Peraza was seen in clinic as scheduled visit. Since her last visit, she remained well from cardiac stand point. 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 * She follows with PCP for management of hypothyroid. Her Levothyroxine dose has been increased sincelast visit. * Arrhythmia Hx: None. * Heart Failure Hx: None. * PMHx: * - Hypothyroidism. * - Bilateral hearing loss. * - Anxiety (follows with Dr Centeno and Dr Smith). * - Atlantoaxial instability-s/p repair. * PSHx: * - Cleft palate repair. (03/2018) * - Lingual tonsillectomy. (10/2015) * - Dental extractions. (08/2012) * -Occipito cervical fusion surgery (03/04/2019) * Family Hx: Adopted. Unknown hx on biological mother. Biological father had stroke in 40s. * Social Hx: Adopted. Lives with parents. 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 Denies smoking, alcohol abuse, and recreational drug abuse. Employed by local [employer]. * Current Medications: * - Dasertta (OCP). * - Levoxyl 88 mcg once daily. * - Ibuprofen PRN * - Probiotic * Allergy: Sulfa drugs. [facility] Work Phone: History of Present illness Narrative* INTERVAL HISTORY: * I saw Los Araiza today in the [facility] at [facility]. 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 Since 2001 she was followed by our Pediatric Cardiology group @ [facility] (Drs. Mena, Ainsley, Shana, Joshua, Marion) on an annual basis with no active cardiac issues. * She was hospitalized in 2018 for syncopal episodes with associated seizure activity. Neurology evaluation was normal. The syncopal episodes were felt to be likely vasovagal which improved overtime with hydration & salt intake. She established care with [facility] team and was seen by Dr. Schultz in November 2018, prior to her occipital cervical fusion surgery by Dr. Carrington on December 08, 2018. * Ms. Peraza was seen in clinic as scheduled visit. At her last visit in August 2021, she remained well from cardiac stand point. Per her mother, she had no symptoms of chest pain/palpitations/PARIKH/cyanosis/decline in energy levels/near syncope/syncope/pedal edema/orthopnea/paroxysmal nocturnal dyspnea * At today's visit, mom voices concern for daytime sleepiness. She says Los takes frequent short daytime naps. She goes to bed between 10-11 pm and wakes up around 7 am. Mom says patient snores softly at night and has never had a formal sleep study. 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 She has become more sedentary. * She follows with PCP for management of hypothyroid. Her Levothyroxine dose has been increased sincelast visit. Her last TSH was drawn on 05/15/2022 and was 4.8, T4 1.12. * Arrhythmia Hx: None. * Heart Failure Hx: None. * PMHx: * - Hypothyroidism. * - Bilateral hearing loss. * - Anxiety (follows with Dr Centeno and Dr Smith). * - Atlantoaxial instability-s/p repair. * PSHx: * - Cleft palate repair. (03/2018) * - Lingual tonsillectomy. (10/2015) * - Dental extractions. (08/2012) * -Occipito cervical fusion surgery (03/04/2019) * Family Hx: Adopted. Unknown hx on biological mother. Biological father had stroke in 40s. * Social Hx: Adopted. Lives with parents. 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 Denies smoking, alcohol abuse, and recreational drug abuse. 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 * Current Medications: * see medication tab * Allergy: Sulfa drugs. [facility] Work Phone: History of Present illness Narrative* INTERVAL HISTORY: * I saw Los Araiza today in the [facility] at [facility]. 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 Since 2001 she was followed by our Pediatric Cardiology group @ [facility] (Ainsley Rai, Shana, Joshua, Marion) on an annual basis with no active cardiac issues. * She was hospitalized in 2018 for syncopal episodes with associated seizure activity. Neurology evaluation was normal. The syncopal episodes were felt to be likely vasovagal which improved overtime with hydration & salt intake. She established care with [facility] team and was seen by Dr. Schultz in November 2018, prior to her occipital cervical fusion surgery by Dr. Carrington on December 08, 2018. * Ms. Peraza was seen in clinic as scheduled visit. At her last visit in August 2021, she remained well from cardiac stand point. Per her mother, she had no symptoms of chest pain/palpitations/PARIKH/cyanosis/decline in energy levels/near syncope/syncope/pedal edema/orthopnea/paroxysmal nocturnal dyspnea * At today's visit, mom voices concern for daytime sleepiness. She says Los takes frequent short daytime naps. She goes to bed between 10-11 pm and wakes up around 7 am. Mom says patient snores softly at night and has never had a formal sleep study. 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 She has become more sedentary. * She follows with PCP for management of hypothyroid. Her Levothyroxine dose has been increased sincelast visit. Her last TSH was drawn on 05/15/2022 and was 4.8, T4 1.12. * Arrhythmia Hx: None. * Heart Failure Hx: None. * PMHx: * - Hypothyroidism. * - Bilateral hearing loss. * - Anxiety (follows with Dr Centeno and Dr Smith). * - Atlantoaxial instability-s/p repair. * PSHx: * - Cleft palate repair. (03/2018) * - Lingual tonsillectomy. (10/2015) * - Dental extractions. (08/2012) * -Occipito cervical fusion surgery (03/04/2019) * Family Hx: Adopted. Unknown hx on biological mother. Biological father had stroke in 40s. * Social Hx: Adopted. Lives with parents. 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 Denies smoking, alcohol abuse, and recreational drug abuse. Employed by [email or web address]. * Current Medications: * see medication tab * Allergy: Sulfa drugs. [facility] Work Phone: History of Present illness Narrative* This is a 21-year-old female who was accompanied by her mother (adopted) with a complaintof feeling tired during the day. Patient has a known history of Down syndrome. Mother reports that child does take naps during the day when driving in a car to different locations that she spends time at. Apparently she does not however take naps on weekends when she is at home. The mother also reports that she does have some mild snoring when she lays down. Her usual sleep hours are 10:50 PM bedtime and she awakens about 7:30 in the morning. She denies drinking any beverages with caffeine. Mother does not report that she has stop breathing episodes. She denies any choking or gasping during sleep or morning headaches. She does however complain of some daytime sleepiness. Her [place] was 5 but it should be noted that the patient's responses to certain situations are variable. Mother reports that these problems been present for the past couple years. It was difficult to obtain accurate response from the patient in regards to difficulty with initiating and maintaining sleep. * She does follow with a occupational rehabilitation aide on a regular basis. She has undergone several cardiac surgeriesand has a history of tetralogy of Fallot and complete AVSD. She has a history of hypothyroidism andthat is being followed by her family physician. She is also being followed closely by her occupational rehabilitation aide, Dr. Alvino Dick. There is a high reported incidence of obstructive sleep apnea in children with Down syndrome. This can be as high as 50%. [facility] DO Work Phone: Instructions* Name Dates Details Instructions not documented [id number] Work Phone: Reason for referral (narrative)* Consultation (Routine) - Authorized Specialty Diagnoses / Procedures Referred By Abdias spence Referred To Contact Pediatric Cardiology Diagnoses Tetralogy of Fallot Complete common atrioventricular canal Nonrheumatic pulmonary valve insufficiency Residual left AV valve insufficiency Procedures Follow Up [place] [id number] [place] [address] Referral ID Status Reason Start Date Expiration Date V isits Requested Visits Authorized [id number] Authorized 09/05/2023 09/04/2024 1 1 * CV Imaging (Routine) - Pending Review Specialty Diagnoses / Procedures Referred By Abdias spence Referred To Contact Cardiology Diagnoses Tetralogy of Fallot Complete common atrioventricular canal Nonrheumatic pulmonary valve insufficiency Residual left AV valve insufficiency Procedures Adult Congenital Transthoracic Echo (TTE) Complete WA COMPLETE TTHRC ECHO CONGENITAL CARDIAC ANOMALY WA MYOCRD STRAIN IMG SPECKLE TRCK ASSMT MYOCRD MECH WA DOP ECHOCARD COLOR FL[place] [address] [place] [address] Referral ID Status Reason Start Date Expiration Date Visits Requested Visits Authorized [id number] Pending Review Perform Procedure 09/05/2023 09/04/20[address] [facility] Work Phone: Summary Purpose Family History No Family History Records FoundUnknown Family Member Name Dates Details Family history of Adopted ch ild Comments:Other Status:Active Mother Name Dates Details Family history unknown(V49.8 9, Z78.9) Status:Active Father Name Dates Details Family history of cerebrovas cular accident (CVA)(V17.1, Z82.3) Status:Active Family history unknown(V49.8 9, Z78.9) Status:Active Unknown Family Member Name Dates Details Family history of Adopted ch ild Comments:Other Status:Active Mother Name Dates Details Family history unknown(V49.8 9, Z78.9) Status:Active Father Name Dates Details Family history unknown(V49.8 9, Z78.9) Status:Active Family history of cerebrovas cular accident (CVA)(V17.1, Z82.3) Status:Active Unknown Family Member Name Dates Details Family history of Adopted ch ild Comments:Other Status:Active Mother Name Dates Details Family history unknown(V49.8 9, Z78.9) Status:Active Father Name Dates Details Family history unknown(V49.8 9, Z78.9) Status:Active Family history of cerebrovas cular accident (CVA)(V17.1, Z82.3) Status:Active Unknown Family Member Name Dates Details Family history of Adopted ch ild Comments:Other Status:Active Mother Name Dates Details Family history unknown(V49.8 9, Z78.9) Status:Active Father Name Dates Details Family history unknown(V49.8 9, Z78.9) Status:Active Family history of cerebrovas cular accident (CVA)(V17.1, Z82.3) Status:Active Unknown Family Member Name Dates Details Family history of Adopted ch ild Comments:Other Status:Active Mother Name Dates Details Family history unknown(V49.8 9, Z78.9) Status:Active Father Name Dates Details Family history of cerebrovas cular accident (CVA)(V17.1, Z82.3) Status:Active Family history unknown(V49.8 9, Z78.9) Status:Active Unknown Family Member Name Dates Details Family history of Adopted ch ild Comments:Other Status:Active Mother Name Dates Details Family history unknown(V49.8 9, Z78.9) Status:Active Father Name Dates Details Family history unknown(V49.8 9, Z78.9) Status:Active Family history of cerebrovas cular accident (CVA)(V17.1, Z82.3) Status:Active Unknown Family Member Name Dates Details Family history of Adopted ch ild Comments:Other Status:Active Mother Name Dates Details Family history unknown(V49.8 9, Z78.9) Status:Active Father Name Dates Details Family history of cerebrovas cular accident (CVA)(V17.1, Z82.3) Status:Active Family history unknown(V49.8 9, Z78.9) Status:Active Unknown Family Member Name Dates Details Family history of Adopted ch ild Comments:Other Status:Active Mother Name Dates Details Family history unknown(V49.8 9, Z78.9) Status:Active Father Name Dates Details Family history unknown(V49.8 9, Z78.9) Status:Active Family history of cerebrovas cular accident (CVA)(V17.1, Z82.3) Status:Active Unknown Family Member Name Dates Details Family history of Adopted ch ild Comments:Other Status:Active Mother Name Dates Details Family history unknown(V49.8 9, Z78.9) Status:Active Father Name Dates Details Family history unknown(V49.8 9, Z78.9) Status:Active Family history of cerebrovas cular accident (CVA)(V17.1, Z82.3) Status:Active Unknown Family Member Name Dates Details Family history of Adopted ch ild Comments:Other Status:Active Mother Name Dates Details Family history unknown(V49.8 9, Z78.9) Status:Active Father Name Dates Details Family history unknown(V49.8 9, Z78.9) Status:Active Family history of cerebrovas cular accident (CVA)(V17.1, Z82.3) Status:Active Unknown Family Member Name Dates Details Adopted child: Other Comments:Patient is adopted; Status:Active Family history of cerebrovas cular accident (CVA): Father(V17.1, Z82.3) Status:Active Family history unknown: [place], Father(V49.89, Z78.9) Status:Active Unknown Family Member Name Dates Details Adopted child: Other Comments:Patient is adopted; Status:Active Family history unknown: [place], Father(V49.89, Z78.9) Status:Active Family history of cerebrovas cular accident (CVA): Father(V17.1, Z82.3) Status:Active Unknown Family Member Name Dates Details Adopted child: Other Comments:Patient is adopted; Status:Active Family history unknown: [place], Father(V49.89, Z78.9) Status:Active Family history of cerebrovas cular accident (CVA): Father(V17.1, Z82.3) Status:Active Unknown Family Member Name Dates Details Adopted child: Other Comments:Patient is adopted; Status:Active Family history unknown: [place], Father(V49.89, Z78.9) Status:Active Family history of cerebrovas cular accident (CVA): Father(V17.1, Z82.3) Status:Active Unknown Family Member Name Dates Details Adopted child: Other Comments:Patient is adopted; Status:Active Family history unknown: [place], Father(V49.89, Z78.9) Status:Active Family history of cerebrovas cular accident (CVA): Father(V17.1, Z82.3) Status:Active Unknown Family Member Name Dates Details Adopted child: Other Comments:Patient is adopted; Status:Active Family history unknown: [place], Father(V49.89, Z78.9) Status:Active Family history of cerebrovas cular accident (CVA): Father(V17.1, Z82.3) Status:Active Unknown Family Member Name Dates Details Adopted child: Other Comments:Patient is adopted; Status:Active Family history unknown: [place], Father(V49.89, Z78.9) Status:Active Family history of cerebrovas cular accident (CVA): Father(V17.1, Z82.3) Status:Active Unknown Family Member Name Dates Details Adopted child: Other Comments:Patient is adopted; Status:Active Family history unknown: [place], Father(V49.89, Z78.9) Status:Active Family history of cerebrovas cular accident (CVA): Father(V17.1, Z82.3) Status:Active Unknown Family Member Name Dates Details Adopted child: Other Comments:Patient is adopted; Status:Active Family history unknown: [place], Father(V49.89, Z78.9) Status:Active Family history of cerebrovas cular accident (CVA): Father(V17.1, Z82.3) Status:Active Unknown Family Member Name Dates Details Adopted child: Other Comments:Patient is adopted; Status:Active Family history of cerebrovas cular accident (CVA): Father(V17.1, Z82.3) Status:Active Family history unknown: [place], Father(V49.89, Z78.9) Status:Active Unknown Family Member Name Dates Details Adopted child: Other Comments:Patient is adopted; Status:Active Family history unknown: Elaine er, Father(V49.89, Z78.9) Status:Active Family history of cerebrovas cular accident (CVA): Father(V17.1, Z82.3) Status:Active Unknown Family Member Name Dates Details Adopted child: Other Comments:Patient is adopted; Status:Active Family history unknown: Elaine [place], Father(V49.89, Z78.9) Status:Active Family history of cerebrovas cular accident (CVA): Father(V17.1, Z82.3) Status:Active Advance Directives No Advanced Directives Records FoundDocuments on File Type Date Recorded Patient [facility] Power of Atty 06/12/2018 Chief Complaint * LOS ARAIZA is here for a follow-up visit and here with mother, Trung. * Reason for Visit: Review sleep study results. * Appointment requested by: Dr. Dick (Cardiology); Dr. Stewart (PCP). * Patient Name: LOS ARAIZA Provider: Alvino Dick MD * : 2000 * Date of Service: 09/06/2022 * Referring: * DIAGNOSES: * 1. Tetralogy of Fallot/Complete AVSD * - 06/01/1999: complete surgical repair of Tetralogy of Fallot and complete AV canal with patch closure of ASD, VSD, and an RV infundibular patch (Dr. Lopes, [facility] in [place]). * - TTE 08/31/2021 Moderate to severe PI, mild PS, mild left AVV regurgitation, normal Biventricular function * - TTE 08/24/2020: Cleft AVV-LT with mild regurgitation, mild WA, no residual shunt, normal Biventricular size and function * - Echo 09/06/2022 Mild Left and Right AVV regurgitation, normal LV/RV size and function, Moderate toSevere PI PHT 100-110 ms (unchanged) * 2. Cleft Lt AVV * - TTE 08/31/2021 Mild Left AVV regurgitation * - Echo 09/06/2022 Mild left and right AVV regurgitation * 3. Pulmonary Insufficiency * - TTE 08/31/2021 Moderate to severe WA (unchanged from previous ECHO 2019) * - Echo 09/06/2022 Moderate to severe PI, PHT 100-110 ms, unchanged from 2020 * 4. Down Syndrome * h/o Atlantoaxial instability * s/p occipital cervical fusion ([facility] Neurosurgery, 12/2018) * No formal sleep study * Hypothyroid, managed by PCP * 1 Sternotomy * CC:[facility] * Patient Name: LOS ARAIZA Provider: Alvino Dick MD * : 2000 * Date of Service: 08/31/2021 * Referring: * DIAGNOSES: * 1. Tetralogy of Fallot/Complete AVSD * a. 06/01/1999: complete surgical repair of Tetralogy of Fallot and complete AV canal with patch closure of ASD, VSD, and an RV infundibular patch (Dr. Lopes, [facility] in [place]). * b. TTE 08/31/2021 Moderate to severe PI, mild PS, mild left AVV regurgitation, normal Biventricularfunction * c. TTE 08/24/2020: Cleft AVV-LT with mild regurgitation, mild WA, no residual shunt, normal Biventricular size and function * 2. Cleft Lt AVV * a. TTE 08/31/2021 Mild Left AVV regurgitation * 3. Pulmonary Insufficiency * a. TTE 08/31/2021 Moderate to severe WA (unchanged from previous ECHO 2019) * 4. Down's Syndrome * 3. Atlantoaxial instability * a. s/p occipital cervical fusion ([facility] Neurosurgery, 12/2018) * 1 Sternotomy * CC:[facility] Reason for Referral Specialty Diagnoses / Procedures Referred By Abdias t Referred To Contact Diagnoses Tetralogy of Fallot Procedures ECG 12 lead (Ancillary Performed) Alvino Dick MD [address] [facility] [place] [address] Referral ID Status Reason Start Date Expiration Date V isits Requested Visits Authorized [id number] Pending Review 08/22/2023 08/21/2024 1 1 Additional Source Comments INFORMATION SOURCE (unrecogn ized section and content) DATE CREATED AUTHOR 03/05/2019 [facility] DATE CREATED AUTHOR AUTHOR'S ORGANIZ ATION 12/25/2021 [facility] DATE CREATED AUTHOR AUTHOR'S ORGANIZ ATION 09/08/2022 [facility] DATE CREATED AUTHOR AUTHOR'S ORGANIZ ATION 10/14/2022 [facility] DATE CREATED AUTHOR AUTHOR'S ORGANIZ ATION 11/15/2022 [facility] DATE CREATED AUTHOR AUTHOR'S ORGANIZ ATION 11/16/2022 [facility] DATE CREATED AUTHOR AUTHOR'S ORGANIZ ATION 09/03/2024 [facility] DATE CREATED AUTHOR AUTHOR'S ORGANIZ ATION 09/06/2024 [facility] Reason for Visit (unrecogniz ed section and content) Specialty Diagnoses / Procedures Referred By Abdias t Referred To Contact Diagnoses Tetralogy of Fallot Procedures ECG 12 lead (Ancillary Performed) Alvino Dick MD [address] [facility] [place] [address] Referral ID Status Reason Start Date Expiration Date V isits Requested Visits Authorized [id number] Pending Review 08/22/2023 08/21/2024 1 1 Reason Comments Follow up [facility] Specialty Diagnoses / Procedures Referred By Abdias spence Referred To Contact Pediatric Cardiology Diagnoses Tetralogy of Fallot Complete common atrioventricular canal Nonrheumatic pulmonary valve insufficiency Residual left AV valve insufficiency Procedures Follow Up [place] [id number] [address] [place] [address] Referral ID Status Reason Start Date Expiration Date V isits Requested Visits Authorized [id number] Authorized 09/05/2023 09/04/2024 1 1 Reason Comments Follow-up Care Teams (unrecognized sec tion and content) Arcade Game Technician Relationship Specialty Start Date End Date Yael Stewart MD [address] [place] [address] PCP - General 07/04/22 Alvino Dick MD [address] [facility] [place] [address] Consulting Physician Cardiology 07/03/23 Arcade Game Technician Relationship Specialty Start Date End Date Yael Stewart MD [address] [facility] [place] [phone] PCP - General 07/04/22 Alvino Dick MD [address] [facility] [place] [address] Consulting Physician Cardiology 07/03/23 Arcade Game Technician Relationship Specialty Start Date End Date Yael Stewart MD PCP - General 07/04/22 Alvino Dick MD [address] [place] [address] Consulting Physician Cardiology 07/03/23 Arcade Game Technician Relationship Specialty Start Date End Date Yael Stewart MD PCP - General 07/04/22 [place] [address] [address] Department [place] [address] Consulting Physician Cardiology 07/03/23 Liliana Blanco, SUZIE Registered Nurse Cardiology 09/03/24 [place] [address] [address] Department [place] [address] Consulting Physician Pediatric Cardiology 09/03/24 FOR RECORDS PERTAINING TO PATIENTS WHO ARE OR HAVE BEEN ENROLLED IN A CHEMICAL DEPENDENCY/SUBSTANCEABUSE PROGRAM, SOME INFORMATION MAY BE OMITTED. This clinical summary was aggregated from multiple sources. Caution should be exercised in using it in the provision of clinical care. This summary normalizes information from multiple sources, and as a consequence, information in this document may materially change the coding, format and clinical context of patient data. In addition, data may be omitted in some cases. CLINICAL DECISIONS SHOULD BE BASED ON THE PRIMARY CLINICAL RECORDS. [facility]. provides no warranty or guarantee of the accuracy or completeness of information in this document.
== END | disposition home or self-care (01) ==
PROVIDERS: PCP Family Medicine; Referring Provider Internal Medicine Gastroenterology; Visit Provider Internal Medicine Gastroenterology
DX: K59.00 Constipation, unspecified (principal)
CPT/HCPCS: 36415; 74019; 80053; 83735; 84436; 84443

== ENCOUNTER → 2024-12-14 | Outpatient (CLI) | payer MEDICARE, MEDICAID, SELFPAY ==
[2024-12-14 18:57] LABS: AST(SGOT) 25 U/L (15-37); Alanine Aminotransfer ALT/SGPT 63 U/L (13-56); Albumin, Serum 3.4 g/dL (3.2-5.0); Alkaline Phosphatase 116 U/L (45-117); Bilirubin, Direct 0.11 mg/dL (0.00-0.30); Globulin 4.3 g/dL (2.2-4.2); Protein, Total 7.7 g/dL (6.4-8.2)
[2024-12-16 08:08] LABS: GGTP 111 IU/L (0-60)
== END | disposition home or self-care (01) ==
PROVIDERS: PCP Family Medicine; Referring Provider Internal Medicine Gastroenterology; Visit Provider Internal Medicine Gastroenterology
DX: R79.9 Abnormal finding of blood chemistry, unspecified (principal)
CPT/HCPCS: 36415; 80076; 82977

== ENCOUNTER → 2025-06-07 | Outpatient (CLI) | payer MEDICARE, MEDICAID, SELFPAY ==
[2025-06-07 18:25] LABS: Hematocrit 41.0 % (37-47); Hemoglobin 13.6 g/dL (12.0-15.0); Immature Granulocytes Count 0.040 X10^3/uL (0.0-0.0); Mean Corp Hgb Conc 33.2 g/dL (32-36); Mean Corpuscular Volume 93.6 fL (81-99); Mean Platelet Vol. 9.4 fl (6.2-12.0); NRBC Flagged by Analyzer 0 % (0-5); Platelet Count 245 K/mm3 (150-450); RBC Distribution Width CV 13.9 % (11.6-14.6); RBC Distribution Width SD 47.6 fl (35.1-43.9); Red Blood Count 4.38 M/mm3 (4.2-5.4); White Blood Count 4.0 K/mm3 (4.4-11.0)
[2025-06-07 18:56] LABS: Anion Gap 12 (5-15); BUN 15 mg/dL (4-19); BUN/Creat Ratio 13.5 RATIO (10-20); Calcium,Total 9.1 mg/dL (7.6-11.0); Carbon Dioxide 20.8 mmol/L (21.0-32.0); Chloride 105 mmol/L (98-108); Glucose 122 mg/dL (70-99); Potassium 3.9 mmol/L (3.3-5.1)
== END | disposition home or self-care (01) ==
LOC: BFHLAB 15:49
PROVIDERS: PCP Family Medicine; Visit Provider Family Medicine
DX: Z00.00 Encounter for general adult medical examination without abnormal findings (principal); E03.9 Hypothyroidism, unspecified; Q90.9 Down syndrome, unspecified
CPT/HCPCS: 36415; 80048; 84443; 85025